=== PATIENT | female | born 1975 | race Caucasian/White ===

== ENCOUNTER 2020-02-06 09:50 | Outpatient (REF) | payer OTHER, SELFPAY ==
[2020-02-06 10:12] LABS: COVID-19 Test Negative (Negative)
== END 2020-02-06 09:51 | disposition home or self-care (01) ==
LOC: HO.LAB 09:50
PROVIDERS: Visit Provider Internal Medicine
DX: Z20.828 Contact with and (suspected) exposure to other viral communicable diseases (principal)
CPT/HCPCS: 87635; C9803

== ENCOUNTER 2020-07-31 09:52 | Outpatient (REF) | payer OTHER, SELFPAY ==
[2020-07-31 12:19] LABS: Anion Gap 11 (12-20); Blood Urea Nitrogen 13 mg/dL (9-16); Calcium 8.8 mg/dL (8.4-10.2); Carbon Dioxide 29 mmol/L (22-29); Chloride 105 mmol/L (96-108); Cholesterol 146 mg/dL; Estimated Glomerular Filt Rate > 60; Glucose Fasting 82 mg/dL (60-99); HDL Cholesterol 45 mg/dL; LDL Cholesterol Calculated 92 mg/dl; Sodium 141 mmol/L (135-145); Triglycerides 48 mg/dL
== END 2020-07-31 09:53 | disposition home or self-care (01) ==
LOC: HO.HMGCLDS 09:52
PROVIDERS: PCP Family Medicine; Visit Provider Family Medicine
DX: Z00.00 Encounter for general adult medical examination without abnormal findings (principal)
CPT/HCPCS: 36415; 80048; 80061

== ENCOUNTER 2020-08-20 16:12 | Outpatient (REF) | payer OTHER, SELFPAY ==
--- NOTE | ~2020-08-20 | MM_ITS ---
EXAMINATION: MM SCREENING DIGITAL BREAST TOMOSYNTHESIS, BILATERAL CLINICAL INFORMATION: Screening. Asymptomatic. The lifetime risk of breast cancer based on the Tyrer-Cuzick Model is 11.7%. COMPARISON: Mammography: 10/18/2017 and studies dating back to 03/05/2015 TECHNIQUE: Digital breast tomosynthesis is performed in both the craniocaudal and mediolateral oblique views along with computer-aided detection (CAD). Synthesized 2D images are generated from the tomosynthesis. FINDINGS: The breasts are extremely dense, which lowers the sensitivity of mammography (ACR BI-RADS breast composition Category d). There is a stable parenchymal pattern within the left breast without new abnormal dominant mass or suspicious grouping of microcalcifications. About the upper outer aspect of the right breast approximately 8 cm from the nipple, there is a 1.4 x 1.0 cm circumscribed density for which spot compression view and ultrasound is recommended. MM/MM tomosynthesis screening BI IMPRESSION: Density deep upper outer aspect of the right breast for further evaluation as described. ASSESSMENT: BI-RADS 0: Incomplete - Need Additional Imaging Evaluation RECOMMENDATION: 1. Additional views of the right breast. 2. Targeted ultrasound if warranted after review of the additional views. 3. Radiology department staff will contact the patient for additional imaging. This patient's information was entered into a reminder system with a target due date for their next mammogram.
== END 2020-08-20 16:13 | disposition home or self-care (01) ==
LOC: HO.MAMMO 16:12
PROVIDERS: PCP Family Medicine; Visit Provider Family Medicine
DX: Z12.31 Encounter for screening mammogram for malignant neoplasm of breast (principal)
CPT/HCPCS: 77063; 77067

== ENCOUNTER 2020-09-10 15:00 | Outpatient (REF) | payer OTHER, SELFPAY ==
--- NOTE | ~2020-09-10 | MM_ITS ---
EXAMINATION: MM DIAGNOSTIC DIGITAL BREAST TOMOSYNTHESIS, RIGHT US DIAGNOSTIC ULTRASOUND BREAST, RIGHT CLINICAL INFORMATION: Recall from screening for oval parenchymal asymmetry posterior upper outer right breast approximately 1.4 x 1.0 cm. No known family history breast cancer. TC score 12%. COMPARISON: Mammography: 08/20/2020, outside mammography 10/18/2017 ([facility]). TECHNIQUE: Digital breast tomosynthesis is performed. 2D images are generated from the tomosynthesis. The following views are obtained: Spot exaggerated CC x2, spot ML. Ultrasound right breast is targeted to the upper outer quadrant. Grayscale imaging and color Doppler are performed without and with harmonics. FINDINGS: The breasts are heterogeneously dense, which may obscure small masses (ACR BI-RADS breast composition Category c). Breast tissue composition borders on extremely dense. The additional views confirm smooth oval mass posterior upper outer quadrant with partly obscured margins measuring approximately 1.4 x 1.0 cm. There is no architectural abnormality. Finding is new from outside mammography 2018. Ultrasound demonstrates benign oval cyst corresponding to finding on mammography 10:00 position 7 cm from nipple measuring 1.3 x 0.6 x 1.0 cm. The cyst is anechoic and circumscribed with increased through-transmission of sound and no associated color flow. There is an incidental adjacent mildly complicated cyst just under 1 cm with fine avascular internal septation. No solid component or associated color flow. There is no solid mass or architectural abnormality. Results are discussed with the patient at time of visit. MM/MM tomosynthesis added views R IMPRESSION: Incidental cysts posterior upper outer right breast, the larger measuring 1.3 cm and corresponding to finding on recent mammography. ASSESSMENT: BI-RADS 2: Benign RECOMMENDATION: Routine annual mammography screening. This patient's information was entered into a reminder system with a target due date for their next mammogram.
== END 2020-09-10 15:01 | disposition home or self-care (01) ==
LOC: HO.MAMMO 15:00
PROVIDERS: Visit Provider Family Medicine
DX: N63.11 Unspecified lump in the right breast, upper outer quadrant (principal)
CPT/HCPCS: 76642; 77061; 77065

== ENCOUNTER 2021-03-17 13:45 | Outpatient (REF) | payer OTHER, SELFPAY ==
[2021-03-17 15:03] LABS: Appearance Urine CLOUDY; Color Urine DK YELLOW; Glucose Urine UA 100 MG/DL (NEG); Leukocyte Esterase Urine 2+ (NEG); Nitrite Urine POS (NEG); UACC Culture Trigger YES; Urine Blood NEG (NEG); Urine Ketones 5 MG/DL (NEG); Urine Protein 1+ MG/DL (NEG-TRACE)
[2021-03-17 15:15] LABS: UACC CULT YES; WBC Urine 50-75 /HPF (0-4)
[2021-03-17 15:16] LABS: Bacteria Urine 2+ /LPF; Mucus Urine 1+ /LPF; Squamous Epithelial Cell Urine 2+ /LPF
== END 2021-03-17 13:46 | disposition home or self-care (01) ==
LOC: HO.LAB 13:45
PROVIDERS: PCP Family Medicine; Visit Provider Family Medicine
DX: Z13.89 Encounter for screening for other disorder (principal)
CPT/HCPCS: 81001; 87086

== ENCOUNTER 2021-10-01 07:34 | Outpatient (REF) | payer OTHER, SELFPAY ==
--- NOTE | ~2021-10-01 | US_ITS ---
EXAMINATION: US PELVIS CLINICAL INFORMATION: Abdominal pain. COMPARISON: None TECHNIQUE: Ultrasound of the pelvis is performed using both transabdominal and transvaginal transducers along with Doppler. Transvaginal imaging is performed due to inadequate visualization transabdominally. FINDINGS: Uterus: The uterus is anteverted and measures 11.0 cm in length, 5.9 mL in AP and 8.3 cm wide. The double wall endometrial thickness is 9 mm. There is an IUD well located within the endometrial canal. The uterus is smooth in contour and has normal myometrial echogenicity. There are several hypoechoic lesions: 1. Lesion in the left fundus measures 3.6 x 3.1 x 3.6 cm. 2. Lesion in the fundus measures 2.2 x 1.8 x 2.1 cm. 3. Lesion in the right upper body of uterus measures 2.1 x 1.6 x 2.2 cm. 4. Lesion in the right lower body of uterus measures 3.8 x 3.1 x 3.6 cm. Adnexa: Both ovaries are visualized. There is normal color flow to the adnexa. There is no ovarian torsion. There is no pelvic ascites or fluid collection. Right ovary measures 5.7 x 4.0 x 3.6 cm, 43.0 mL. There is an anechoic cyst measuring 4.5 x 2.6 x 3.4 cm. Left ovary measures 2.5 x 2.3 x 2.3 cm and volume 6.9 mL. There is a dominant follicle seen. US/US pelvic and transvaginal IMPRESSION: Mirena IUD appears to be in correct position within the endometrial canal. Small right ovarian cyst. Small dominant follicle in the left ovary.
== END 2021-10-01 07:35 | disposition home or self-care (01) ==
LOC: HO.US 07:34
PROVIDERS: Visit Provider Internal Medicine
DX: R10.84 Generalized abdominal pain (principal)
CPT/HCPCS: 76830; 76856

== ENCOUNTER 2022-07-14 13:00 | Outpatient (REF) | payer OTHER, SELFPAY ==
[2022-07-14 14:51] LABS: Influenza A PCR NEGATIVE (Negative); Influenza B PCR NEGATIVE (Negative); Resp Syncy Virus RNA Qual PCR NEGATIVE (Negative); SARS COV2 PCR INHOUSE NEGATIVE (Negative)
== END 2022-07-14 13:01 | disposition home or self-care (01) ==
LOC: HO.LAB 13:00
PROVIDERS: Visit Provider Nurse Practitioner Family
DX: Z20.822 Contact with and (suspected) exposure to COVID-19 (principal); R09.89 Other specified symptoms and signs involving the circulatory and respiratory systems
CPT/HCPCS: 0241U

== ENCOUNTER 2022-07-23 11:05 | Outpatient (REF) | payer OTHER, SELFPAY ==
[2022-07-23 14:16] LABS: Alanine Aminotransferase 14 U/L (0-31); Albumin Level 4.1 g/dL (3.5-5.0); Alkaline Phosphatase 54 U/L (39-117); Anion Gap 11 (12-20); Aspartate Amino Transferase 15 U/L (5-31); Bilirubin Total 0.8 mg/dL (0.0-1.0); Blood Urea Nitrogen 12 mg/dL (9-16); Calcium 8.8 mg/dL (8.4-10.2); Carbon Dioxide 31 mmol/L (22-29); Chloride 104 mmol/L (96-108); Cholesterol 157 mg/dL; Estimated Glomerular Filt Rate > 60; Glucose Random 81 mg/dL (60-115); HDL Cholesterol 49 mg/dL; Potassium 3.3 mmol/L (3.3-5.1); Sodium 143 mmol/L (135-145); Total Protein 6.6 g/dL (6.5-8.0)
[2022-07-23 14:40] LABS: Syphilis Screen Nonreactive (Nonreactive)
[2022-07-23 15:42] LABS: CT PCR NOT DETECTED (Not Detect.); NG PCR NOT DETECTED (Not Detect.)
[2022-07-26 08:57] LABS: HBsAGNum1 0.36 S/CO (0.00-0.99); HIV AB/AG Nonreactive (Nonreactive); HIV Num 1 0.08 S/CO (0.00-0.99); Hepatitis B Surface Antigen Negative (Negative); ~HepC Num1 0.14 S/CO (0.00-0.79); ~Hepatitis C Antibody Nonreactive (Nonreactive)
[2022-07-28 16:43] LABS: LDL Cholesterol Calculated 100 mg/dl; Triglycerides 42 mg/dL
== END 2022-07-23 11:06 | disposition home or self-care (01) ==
LOC: HO.HMGCLDS 11:05
PROVIDERS: PCP Family Medicine; Visit Provider Family Medicine
DX: Z00.00 Encounter for general adult medical examination without abnormal findings (principal); Z11.4 Encounter for screening for human immunodeficiency virus [HIV]; Z20.2 Contact with and (suspected) exposure to infections with a predominantly sexual mode of transmission; Z86.73 Personal history of transient ischemic attack (TIA), and cerebral infarction without residual deficits
CPT/HCPCS: 0353U; 80053; 80061; 86780; 86803; 87340; 87389

== ENCOUNTER 2022-09-03 08:12 | Outpatient (REF) | payer OTHER, SELFPAY ==
--- NOTE | ~2022-09-03 | MM_ITS ---
EXAMINATION: MM SCREENING DIGITAL BREAST TOMOSYNTHESIS, BILATERAL CLINICAL INFORMATION: Screening. Asymptomatic. The lifetime risk of breast cancer based on the Tyrer-Cuzick Model is 12%. COMPARISON: Mammography: 09/10/2020, 08/20/2020, right breast ultrasound 09/10/2020; outside mammography 10/18/2017, 03/11/2016, 03/05/2015 ([facility]). TECHNIQUE: Digital breast tomosynthesis is performed in both the craniocaudal and mediolateral oblique views along with computer-aided detection (CAD). Synthesized 2D images are generated from the tomosynthesis. FINDINGS: The breasts are heterogeneously dense, which may obscure small masses (ACR BI-RADS breast composition Category c). There is fibronodular parenchymal pattern similar to prior studies. Right breast cysts decreased. Left breast shows no developing density or architectural abnormality. No abnormal calcifications either breast. The axilla and skin contours are unremarkable. The right CC view has 0.5 cm nodular asymmetric density 3 cm from nipple without definite MLO correlate, likely incompletely compressed glandular tissue or summation artifact. Patient will be recalled for additional imaging. MM/MM tomosynthesis screening BI IMPRESSION: Right: -Nodular asymmetric density CC view 3 cm from nipple likely incompletely compressed glandular tissue or summation artifact. Left: -No significant changes from prior exam. ASSESSMENT: BI-RADS 0: Incomplete - Need Additional Imaging Evaluation RECOMMENDATION: 1. Additional views right breast (spot CC, rolled CC x2). 2. Targeted ultrasound if warranted after review of the additional views. 3. Radiology department staff will contact the patient for additional imaging. This patient's information was entered into a reminder system with a target due date for their next mammogram.
== END 2022-09-03 08:13 | disposition home or self-care (01) ==
LOC: HO.MAMMO 08:12
PROVIDERS: PCP Family Medicine; Visit Provider Family Medicine
DX: Z12.31 Encounter for screening mammogram for malignant neoplasm of breast (principal)
CPT/HCPCS: 77063; 77067

== ENCOUNTER 2022-09-17 08:05 | Outpatient (REF) | payer OTHER, SELFPAY ==
--- NOTE | ~2022-09-17 | MM_ITS ---
EXAMINATION: MM DIAGNOSTIC DIGITAL BREAST TOMOSYNTHESIS, RIGHT US TARGETED BREAST ULTRASOUND, RIGHT CLINICAL INFORMATION: Left breast density approximately 3 cm from the nipple without correlate on mediolateral oblique projection and either lying at the 12 o'clock position or 6 o'clock position. COMPARISON: Mammography: 09/03/2022 and studies dating back to 03/05/2015. TECHNIQUE: Digital breast tomosynthesis is performed. 2-D images are generated from the tomosynthesis. The following views are obtained: Spot compression right breast craniocaudal view as well as right breast rolled craniocaudal medial and lateral views. Targeted right breast ultrasound. FINDINGS: The breasts are extremely dense, which lowers the sensitivity of mammography (ACR BI-RADS breast composition Category d). Additional views demonstrate question persistence of an approximately 7 mm density but which may represent superimposed tissue. Rolled lateral view shows a question of either dense tissue or partially circumscribed structure but which is not seen on the lateral rolled craniocaudal view. If the structure is real, it would be lying within the inferior breast approximately 6 o'clock position by the medial rolled view. Targeted right breast ultrasound demonstrates a small 3 mm simple-appearing cyst at the 12 o'clock position with no suspicious mass being identified within the anterior right breast. Recommend 6-month follow up right breast mammogram. Results are discussed with the patient at time of visit. MM/MM tomosynthesis added views R IMPRESSION: Right breast density likely responds to dense breast parenchyma, as described, with no suspicious right breast ultrasound findings. Recommend 6-month follow up right breast mammography. ASSESSMENT: BI-RADS 3: Probably Benign. RECOMMENDATION: Diagnostic mammography in 6 months. This patient's information was entered into a reminder system with a target due date for their next mammogram.
== END 2022-09-17 08:06 | disposition home or self-care (01) ==
LOC: HO.MAMMO 08:05
PROVIDERS: PCP Family Medicine; Visit Provider Family Medicine
DX: R92.8 Other abnormal and inconclusive findings on diagnostic imaging of breast (principal)
CPT/HCPCS: 76642; 77061; 77065

== ENCOUNTER 2023-03-03 07:30 | Outpatient (REF) | payer OTHER, SELFPAY ==
--- NOTE | ~2023-03-03 | US_ITS ---
EXAMINATION: US ABDOMEN COMPLETE CLINICAL INFORMATION: Abdominal pain. COMPARISON: None available. TECHNIQUE: Real-time imaging of the abdominal viscera. FINDINGS: PANCREAS: Normal. ABDOMINAL AORTA: The proximal, mid, and distal segments are normal in caliber. INFERIOR VENA CAVA: Visualized portions are normal. LIVER: The liver is normal in size. The liver contour is normal. Parenchymal echogenicity is normal. There is a 1 cm echogenic lesion in the right lobe of the liver most likely representing a benign hemangioma. There is no intrahepatic biliary duct dilatation seen. GALLBLADDER: There are 3 small echogenic densities adjacent to the gallbladder wall that do not move or shadow most likely representing small polyps. The largest measures 4 x 2 x 3 mm. The gallbladder is physiologically distended without evidence of stones, sludge, wall thickening or pericholecystic fluid. COMMON BILE DUCT: Normal in caliber measuring 0.4 cm in diameter. RIGHT KIDNEY: Small echogenic densities with twinkle artifact questionable for small stones. Largest measure 3 mm in the upper pole. No hydronephrosis or focal parenchymal lesions. The kidney measures 11.3 cm in maximum dimension. LEFT KIDNEY: Small echogenic densities with twinkle artifact questionable for small stones. Largest measure 2 mm in the lower pole. No hydronephrosis or focal parenchymal lesions. The kidney measures 11.2 cm in maximum dimension. SPLEEN: Normal. The spleen measures 9.4 cm in maximum dimension. FREE FLUID: None. US/US abdomen complete IMPRESSION: 1 cm echogenic liver lesion probably representing a benign hemangioma. Small gallbladder wall polyps. Probable small bilateral renal stones.
== END 2023-03-03 07:31 | disposition home or self-care (01) ==
LOC: HO.US 07:30
PROVIDERS: Visit Provider Internal Medicine Gastroenterology
DX: R10.84 Generalized abdominal pain (principal)
CPT/HCPCS: 76700

== ENCOUNTER → 2023-04-22 11:00 | Outpatient (BNV) | payer OTHER, SELFPAY | PROVIDERS: PCP Family Medicine; Visit Provider Radiology Diagnostic Radiology | DX: R92.8 Other abnormal and inconclusive findings on diagnostic imaging of breast (principal) | CPT/HCPCS: 77061; 77065 ==

== ENCOUNTER 2023-04-22 11:02 | Outpatient (REF) | payer OTHER, SELFPAY ==
--- NOTE | ~2023-04-22 | MM_ITS ---
EXAMINATION: MM DIAGNOSTIC DIGITAL BREAST TOMOSYNTHESIS, RIGHT CLINICAL INFORMATION: 6 month follow-up for 7 mm anterior right breast density, likely prominent glandular tissue. COMPARISON: Mammography: 09/17/2022, 09/03/2022 (BI-RADS 0), and dating back to 2014. TECHNIQUE: Digital right breast tomosynthesis is performed in both the craniocaudal and mediolateral oblique views along with computer-aided detection (CAD). Synthesized 2D images are generated from the tomosynthesis. A full-field right 3-D ML view was also included. FINDINGS: The breasts are heterogeneously dense, which may obscure small masses (ACR BI-RADS breast composition Category c). The 7 mm density seen on the CC projection 2 cm posterior to the nipple along the nipple line is unchanged, with no definite correlate identified on the MLO or ML views. Previously, there was no ultrasound correlate 09/17/2022. Given stability this is consistent with a benign entity such as a prominent island of fibroglandular tissue. The breast parenchyma remains nodular and heterogeneously dense, without change. No suspicious masses, suspicious grouped microcalcifications, or areas of architectural distortion are evident. No abnormal skin or axillary findings. MM/MM tomosynthesis diagnostic RT IMPRESSION: There are no significant changes from prior study. No suspicious findings identified in the right breast. Recommend the patient return to routine annual bilateral screening in August 2023. ASSESSMENT: BI-RADS BI-RADS 2 - Benign Findings RECOMMENDATION: 1 year F/U Results were provided to the patient at time of visit by the technologist. This patient's information was entered into a reminder system with a target due date for their next mammogram.
== END 2023-04-22 11:03 | disposition home or self-care (01) ==
LOC: HO.MAMMO 11:02
PROVIDERS: PCP Family Medicine; Visit Provider Family Medicine
DX: R92.8 Other abnormal and inconclusive findings on diagnostic imaging of breast (principal)
CPT/HCPCS: 77061; 77065

== ENCOUNTER 2023-05-10 08:12 | Outpatient (REF) | payer OTHER, SELFPAY ==
[2023-05-14 01:09] LABS: Fecal Fat Qualitative Normal (Normal)
[2023-05-20 04:09] LABS: Pancreatic Elastase-1 383 mcg/g
== END 2023-05-10 08:13 | disposition home or self-care (01) ==
LOC: HO.LNP 08:12
PROVIDERS: Visit Provider Internal Medicine Gastroenterology
DX: R10.84 Generalized abdominal pain (principal)
CPT/HCPCS: 82656; 82705

== ENCOUNTER 2023-07-26 07:56 | Outpatient (REF) | payer OTHER, SELFPAY ==
--- NOTE | ~2023-07-26 | FL_ITS ---
EXAMINATION: XR FLUOROSCOPY UPPER GI WITH AIR AND SMALL BOWEL SERIES CLINICAL INFORMATION: Abdominal pain COMPARISON: None TECHNIQUE: Fluoroscopic air contrast upper GI examination was performed utilizing standard techniques with thin and thick barium and effervescent granules. Numerous spot images were obtained. FINDINGS: Dual and single contrast images of the esophagus demonstrate normal caliber, contour, and mucosal pattern. No evidence of stricture, mass, or ulcerations identified. Esophageal peristalsis was normal. No evidence of hiatus hernia identified. No significant gastroesophageal reflux was seen during the course of the examination and on reflux views. Dual contrast and single contrast images of the stomach demonstrated normal contour and mucosal pattern without evidence of mass, ulceration, or other abnormality. Contrast freely passed into the gastric antrum and duodenal bulb without delay. Single and air-contrast images of the duodenal bulb demonstrate no abnormality. The duodenal sweep has a normal appearance, course, and mucosal fold appearance. The imaged small bowel has a normal fold pattern and caliber. No strictures or masses are present. Contrast is seen in the right colon at 60 minutes. FLUOROSCOPY TIME: 3 minutes 42 seconds Number of Spot Images: 11 Number of Cine: 12 DOSE AREA PRODUCT: 1934 uGy-m2 (microgray-meter squared) FL/FL upper GI w air w SBFT IMPRESSION: Unremarkable upper GI and small bowel series This procedure was performed by Breezy Ng PA-C, and supervised by Dr. Hong
== END 2023-07-26 07:57 | disposition home or self-care (01) ==
LOC: HO.XRAY 07:56
PROVIDERS: PCP Family Medicine; Visit Provider Internal Medicine Gastroenterology
DX: R10.84 Generalized abdominal pain (principal)
CPT/HCPCS: 36415; 74246; 74248; 84443

== ENCOUNTER → 2023-07-26 07:59 | Outpatient (BNV) | payer OTHER, SELFPAY | PROVIDERS: PCP Family Medicine; Visit Provider Physician Assistant Surgical | DX: R10.9 Unspecified abdominal pain (principal) | CPT/HCPCS: 74246 ==

== ENCOUNTER 2023-10-28 11:29 | Outpatient (REF) | payer OTHER, SELFPAY ==
--- NOTE | ~2023-10-28 | MM_ITS ---
EXAMINATION: MM SCREENING DIGITAL BREAST TOMOSYNTHESIS, BILATERAL CLINICAL INFORMATION: Screening. Asymptomatic. COMPARISON: Mammography: This study is compared with prior exams dating back to 2020. TECHNIQUE: Digital breast tomosynthesis is performed in both the craniocaudal and mediolateral oblique views along with computer-aided detection (CAD). Synthesized 2D images are generated from the tomosynthesis. FINDINGS: The breasts are heterogeneously dense, which may obscure small masses (ACR BI-RADS breast composition Category c). There are no significant masses, abnormal calcifications, or other abnormalities. MM/MM tomosynthesis screening BI IMPRESSION: No mammographic evidence of malignancy. ASSESSMENT: BI-RADS BI-RADS 1 - Negative RECOMMENDATION: Routine annual mammography screening. 1 year F/U This examination should not preclude the clinical evaluation of a suspicious palpable abnormality. This patient's information was entered into a reminder system with a target due date for their next mammogram. Electronically signed by: Jaky Abdullahi MD 11/25/2023 12:19 PM EDT
== END 2023-10-28 11:30 | disposition home or self-care (01) ==
LOC: HO.MAMMO 11:29
PROVIDERS: PCP Family Medicine; Visit Provider Family Medicine
DX: Z12.31 Encounter for screening mammogram for malignant neoplasm of breast (principal)
CPT/HCPCS: 77063; 77067

== ENCOUNTER → 2023-10-28 11:30 | Outpatient (BNV) | payer OTHER, SELFPAY | PROVIDERS: PCP Family Medicine; Visit Provider Radiology Diagnostic Radiology | DX: Z12.31 Encounter for screening mammogram for malignant neoplasm of breast (principal) | CPT/HCPCS: 77063; 77067 ==

== ENCOUNTER 2023-12-13 08:34 | Outpatient (AMB) | payer OTHER, SELFPAY ==
--- NOTE | 2023-12-13 08:37 | MHC.OFFWIV ---
Intake Vital Signs 12/13/23 08:46 Height 5 ft 4 in Weight 147 lb BMI 25.2 BP 112/70 Blood Pressure Location Rt brachial Position Sitting Pulse 70 Pulse Source Pulse Oximeter Temp 98.1 F Temp Source Oral Pulse Oximetry (%) 98 Oxygen Delivery Method Room Air Intake Visit Reasons: EP UTI? Intake Note: Patient here for because she has been dealing with urinary spasms and back pain for a couple of week on and off and came back last night Patient Tobacco Use Status: Never used Tobacco Allergies cephalexin [Keflex] Allergy (Unknown, Verified 12/13/23 08:46) Rash Sulfa (Sulfonamide Antibiotics) Allergy (Unknown, Verified 12/13/23 08:46) Anxiety Do you need a note to return to daycare/school/sports/work: No HPI HPI Comments History of Present Illness Details Patient is a 48-year-old female complaining of a couple of weeks of bilateral low back pain. She denies any fevers or blood in her urine. She states she was told she had some small kidney stones last February which was an incidental finding on an ultrasound from 03/03/2023. She does not think she ever passed those stones. [facility] Social History Patient Tobacco Use Status: Never used Tobacco Review of Systems Const All systems reviewed & are unremarkable except as noted in HPI and below Physical Exam Vital Signs: Last Vital Signs Temp 98.1 F 12/13/23 08:46 Pulse 70 12/13/23 08:46 BP 112/70 12/13/23 08:46 Pulse Ox 98 12/13/23 08:46 Oxygen Delivery Method Room Air 12/13/23 08:46 BMI result Body Mass Index 25.2 Const General: cooperative, healthy appearing, comfortable, no acute distress and well developed Orientation/consciousness: patient oriented x3 Limitations: no limitations HEENT Head: Yes normal to inspection Eyes General: appearance normal, both eyes and all related structures Neck Neck: Yes normal visual inspection and Yes full ROM Resp Effort & Inspection: normal respiratory effort and able to speak in complete sentences GI Inspection: Yes normal to inspection Palpation (GI): Soft to palpation and nontender General: Yes CVA tenderness (Bilateral) Back/Spine/Pelvis Back: CVA tenderness (Bilateral) Skin General skin exam: no rashes or lesions noted Neuro General: patient oriented x3 Extrem General: Yes normal to inspection Results AMB Urinalysis, Automated UA Leukoctes 0 Larissa/uL Last Edit by Jason Ramirez CCM on 12/13/23 08:52 UA Nitrite Negative Last Edit by Jason Ramirez [facility] on 12/13/23 08:52 UA Urobilinogen 0.2 mg/dL Last Edit by Jason Ramirez [facility] on 12/13/23 08:52 UA Protein 0 mg/dL Last Edit by Jason Ramirez [facility] on 12/13/23 08:52 UA pH 6.0 Last Edit by Jason Ramirez [facility] on 12/13/23 08:52 UA Blood 25 Ganesh/uL Last Edit by Jason Ramirez [facility] on 12/13/23 08:52 UA Specific Sandwich 1.010 Last Edit by Jason Ramirez [facility] on 12/13/23 08:52 UA Ketone Negative Last Edit by Jason Ramirez [facility] on 12/13/23 08:52 UA Bilirubin 0 mg/dL Last Edit by Jason Ramirez [facility] on 12/13/23 08:52 UA Glucose 0 mg/dL Last Edit by Jason Ramirez [facility] on 12/13/23 08:52 Assessment & Plan Assessment & Plan (1) Kidney stones: Code(s): N20.0 - Calculus of kidney Plan: Vital signs are stable, UA negative for infection, positive for blood, patient is well-appearing however positive CVA tenderness bilaterally, according to 03/03/2023 ultrasound patient had small bilateral stones in her kidneys, likely she is passing these now, question if new ones were formed so recommended she go to the emergency department for a current ultrasound and further workup. Called [facility] ED with expect Plan See above Orders: Orders AMB Urinalysis Automated Today Z13.9 - Encounter for screening, unspecified Coding Level of Care Code New Pt Level 5 (99398) Diagnoses Kidney stones N20.0
[2023-12-13 08:46] VITALS: BP 112/70; PULSE 70; TEMP 36.7; O2SAT 98; BMI 25.2
== END 2023-12-13 09:27 | disposition home or self-care (01) ==
PROVIDERS: PCP Family Medicine; Visit Provider Physician Assistant
DX: N20.0 Calculus of kidney (principal)

== ENCOUNTER → 2023-12-13 08:34 | Outpatient (BNVA) | payer OTHER, SELFPAY | PROVIDERS: PCP Family Medicine | DX: N20.0 Calculus of kidney (principal) | CPT/HCPCS: 81003 ==

== ENCOUNTER 2023-12-13 09:56 | Emergency (ER) | payer OTHER, SELFPAY ==
--- NOTE | ~2023-12-13 | CT_ITS ---
EXAMINATION: CT ABDOMEN AND PELVIS WITHOUT CONTRAST CLINICAL INFORMATION: Bilateral flank pain and hematuria COMPARISON: None available. TECHNIQUE: Multidetector volumetric imaging was performed from the superior aspect of the liver through the pubic symphysis. Sagittal and coronal reformatted images were obtained on the technologist's workstation. This CT examination was performed using dose optimization techniques as appropriate, variously including the following: *Automated exposure control *Adjustment of mA and/or kV according to patient size (this includes techniques or standardized protocols for targeted exams where dose is matched to indication/reason for exam; i.e. extremities or head) *Use of iterative reconstruction technique DLP: 368 mGy-cm FINDINGS: MED SURG NURSE: IUD. Fecal retention. LUNG BASES: Mild atelectasis. LIVER, GALLBLADDER, AND BILIARY TREE: The liver is normal in size, shape, and attenuation. No focal hepatic lesion or biliary ductal dilatation is present. The gallbladder is unremarkable with no evidence of radiopaque gallstones, gallbladder wall thickening, or obvious pericholecystic inflammatory changes. PANCREAS: Unremarkable. SPLEEN: Unremarkable. ADRENAL GLANDS: Unremarkable. KIDNEYS AND URETERS: The kidneys are normal in size, shape, and attenuation. No hydronephrosis, hydroureter, or calculi seen. No perinephric stranding. Small extrarenal pelvises, right greater than left. BLADDER: Unremarkable. GASTROINTESTINAL TRACT: Stomach is relatively decompressed. Nonobstructive bowel pattern. Appendix not identified. Moderately severe fecal retention. ABDOMINAL WALL: No significant hernia is appreciated. LYMPH NODES: Normal. VASCULAR: Unremarkable. PELVIC VISCERA: Enlarged, likely fibroid uterus with IUD. OSSEOUS STRUCTURES: L5-S1 disc disease. CT/CT abdomen pelvis wo IV con IMPRESSION: 1. No acute intra-abdominal or pelvic pathology. Specifically, no hydroureteronephrosis, renal, ureteral or bladder calculi. 2. Moderately severe fecal retention. 3. Enlarged, likely fibroid uterus with IUD. Fleischner guidelines were followed. Electronically signed by: Christine Rolon MD 12/13/2023 12:48 PM EDT
[2023-12-13 10:02] VITALS: BP 151/75; PULSE 76; RESP 18; TEMP 36.7; O2SAT 97; BMI 21.2
[2023-12-13 10:29] LABS: MANUAL DIFF FLAG NO
[2023-12-13 10:32] LABS: Basophils Absolute Auto 0.1 X10*3/uL (0.0-0.2); Eosinophils Absolute Auto 0.2 X10*3/uL (0.0-0.4); Eosinophils Percent Auto 2.9 % (0-4); Hematocrit 43.2 % (37.0-47.0); Hemoglobin 14.7 g/dl (12.0-16.0); Imm Gran Abs Auto 0.02 X10*3/uL (0.00-0.03); Imm Gran Pct Auto 0.3 % (0.0-0.4); Lymphocytes Absolute Auto 1.6 X10*3/uL (1.2-4.9); Lymphocytes Percent Auto 25.6 % (20-40); Mean Corpuscular Hemoglobin 33.2 pg (27.0-33.0); Mean Corpuscular Volume 97.5 fL (80.0-98.0); Mean Platelet Volume 8.7 fL (9.4-12.3); Monocytes Absolute Auto 0.5 X10*3/uL (0.1-1.2); Monocytes Percent Auto 8.4 % (2-11); Neutrophils Absolute Auto 3.8 x10*3/uL (2.0-8.3); Neutrophils Percent Auto 61.8 % (45-73); Platelet Count 354 X10*3/uL (160-400); Red Blood Count 4.43 X10*6/uL (4.20-5.50); Red Cell Distribution Width 12.4 % (11.0-16.0); White Blood Count 6.2 X10*3/uL (4.8-10.8)
[2023-12-13 10:32] LABS: Appearance Urine Clear; Color Urine Dark Yellow; Glucose Urine UA Negative (Negative); Leukocyte Esterase Urine Trace (Negative); Nitrite Urine Negative (Negative); UMIC TRIGGER UACC YES; Urine Blood Large (3+) (Negative); Urine Ketones Negative (Negative); Urine Protein Negative (Neg-Trace)
[2023-12-13 10:34] LABS: Bacteria Urine Trace (None Seen); Hyaline Casts Urine 0-2 /LPF (0-2); RBC Urine >20 /HPF (0-2); Squamous Epithelial Cell Urine 0-2 /HPF (0-2); WBC Urine 0-5 /HPF (0-5)
[2023-12-13 10:51] LABS: Anion Gap 10 (12-20); Blood Urea Nitrogen 11 mg/dL (9-16); Calcium 9.3 mg/dL (8.4-10.2); Carbon Dioxide 30 mmol/L (22-29); Chloride 106 mmol/L (96-108); Estimated Glomerular Filt Rate > 60; Glucose Random 100 mg/dL (60-115); Potassium 3.4 mmol/L (3.3-5.1); Sodium 143 mmol/L (135-145)
--- NOTE | 2023-12-13 11:12 | ED.ABDPAIN ---
HPI - Abdominal Pain General Chief Complaint: Back Pain/Injury Stated Complaint: Kidney stones? Sent from urgent care Time Seen by Provider: 12/13/23 11:11 Source: patient Mode of arrival: ambulatory Limitations: no limitations History of Present Illness ED Provider: Mary Ann Mckinney PA-C HPI narrative: 48 yo female with history of kidney stones, history of gastroenteritis who presents to the ER from urgent care for evaluation of lower back pain and microscopic hematuria. Patient states for the last 2-3 weeks she has had intermittent lower back pain, worse on the left than the right. She also endorses some urinary ?spasms? at the end of her urinary stream. She reports the pain is in her urethra and her bladder. She denies any dysuria, urgency, frequency or gross hematuria. No nausea, vomiting, diarrhea. She suffers from constipation and takes MiraLax and Metamucil at baseline. She denies any fever or chills. 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 MD elicited complaint: other (Lower back pain) Pertinent past history: kidney stones Onset (ago): week(s) Pain Consistency: intermittent Related Data Previous Rx's ?Medication ?Instructions ?Recorded ondansetron 4 mg disintegrating 4 mg PO Q6-8H PRN nausea and 07/14/22 tablet vomiting #30 tabs Allergies Allergy/AdvReac Type Severity Reaction Status Date / Time cephalexin [Keflex] Allergy Unknown Rash Verified 12/13/23 10:03 Sulfa (Sulfonamide Allergy Unknown Anxiety Verified 12/13/23 10:03 Antibiotics) [facility] Social History Social History Patient Tobacco Use Status: Never used Tobacco Advance Directives: No Advance Directives Information Provided: Yes Physical Exam ED Vital Signs: Vital Signs - 24 hr 12/13/23 10:02 12/13/23 12:00 12/13/23 13:14 Temperature 98.1 F 98.1 F 98.1 F Pulse Rate 76 69 69 Respiratory Rate 18 14 14 Blood Pressure 151/75 H 127/78 127/78 Pulse Oximetry 97 100 100 Oxygen Delivery Method Room Air Room Air Room Air BMI result Body Mass Index 21.2 Appearance: Alert. Oriented X3. No acute distress. Head: normocephalic, atraumatic. Eyes: Pupils equal, round and reactive to light. ENT: Pharynx normal. Neck: Normal inspection. CVS: Normal heart rate and rhythm. Pulses normal. Respiratory: No respiratory distress. Breath sounds normal. Abdomen: Soft and nontender. +BS x4 Back: Normal inspection. No midline tenderness of the thoracic or lumbar spine. There is soft tissue tenderness of the left lower lumbar area. Skin: Skin warm and dry. Normal skin color. Normal skin turgor. No rashes. Extremities: No lower extremity edema. No joint swelling. Neuro/psych: Oriented X 3. No motor deficit. No sensory deficit. CN II-XII intact. Normal speech and cognition. Medical Decision Making Medical Decision Making [facility] Narrative: 48-year-old female with history of kidney stones in the past, gastroenteritis who presents to the ER for evaluation of lower abdominal pain for last couple of weeks along with urinary ?spasms. ? no vomiting. She endorses constipation. On arrival to the ER patient is comfortable appearing, abdomen is nontender. No CVA tenderness on examination. Lab workup does show some microscopic hematuria without any evidence of infection in her urine. Not anemic. CT scan of her abdomen showed no kidney or ureteral stones, no hydronephrosis. She does have significant amount of stool burden. This could be causing her low back pain. We discussed the importance of following up with her PCP and Urology for further evaluation and treatment of her microscopic hematuria. Recommended increasing her bowel regimen. Return precautions were discussed. Stable for DC home. Differential Diagnosis Differential Diagnoses: The differential diagnosis associated with the presentation includes Kidney stones, renal colic, musculoskeletal back pain, constipation, bladder cancer Lab Data [facility] Lab Attestation statement: I reviewed the patient's lab results. No anemia, no leukocytosis, normal renal function 12/13/23 10:22 12/13/23 10:22 Labs: Lab Results 12/13/23 12/13/23 Range/Units 10:22 10:23 WBC 6.2 (4.8-10.8) X10*3/uL RBC 4.43 (4.20-5.50) X10*6/uL Hgb 14.7 (12.0-16.0) g/dl Hct 43.2 (37.0-47.0) % MCV 97.5 (80.0-98.0) fL MCH 33.2 H (27.0-33.0) pg MCHC 34.0 (31.0-35.0) g/dl RDW 12.4 (11.0-16.0) % Plt Count 354 (160-400) X10*3/uL MPV 8.7 L (9.4-12.3) fL Immature Gran % (Auto) 0.3 (0.0-0.4) % Neut % (Auto) 61.8 (45-73) % Lymph % (Auto) 25.6 (20-40) % Guthrie % (Auto) 8.4 (2-11) % Eos % (Auto) 2.9 (0-4) % Baso % (Auto) 1.0 (0-2) % Lymph # (Auto) 1.6 (1.2-4.9) X10*3/uL Guthrie # (Auto) 0.5 (0.1-1.2) X10*3/uL Eos # (Auto) 0.2 (0.0-0.4) X10*3/uL Baso # (Auto) 0.1 (0.0-0.2) X10*3/uL Abs Immat Gran (auto) 0.02 (0.00-0.03) X10*3/uL Absolute Neuts (auto) 3.8 (2.0-8.3) x10*3/uL Absolute Nucleated RBC 0.000 (0.0-0.012) X10*3/uL Nucleated RBC % (auto) 0.0 (0.0-0.2) /100WBC Sodium 143 (135-145) mmol/L Potassium 3.4 (3.3-5.1) mmol/L Chloride 106 (96-108) mmol/L Carbon Dioxide 30 H (22-29) mmol/L Anion Gap 10 L (12-20) BUN 11 (9-16) mg/dL Creatinine 0.66 (0.5-1.4) mg/dL Estim Creat Clear Calc 88.0 Estimated GFR > 60 Random Glucose 100 (60-115) mg/dL Calcium 9.3 (8.4-10.2) mg/dL Urine Color Dark Yellow Urine Appearance Clear Urine pH 7.0 (5.0-9.0) Ur Specific Hadley 1.010 (1.005-1.025) Urine Protein Negative (Neg-Trace) mg/dL Urine Glucose (UA) Negative (Negative) mg/dL Urine Ketones Negative (Negative) mg/dL Urine Blood Large (3+) H (Negative) Urine Nitrite Negative (Negative) Ur Leukocyte Esterase Trace H (Negative) Urine RBC >20 H (0-2) /HPF Urine WBC 0-5 (0-5) /HPF Ur Squamous Epith Cells 0-2 (0-2) /HPF Urine Bacteria Trace (None Seen) Hyaline Casts 0-2 (0-2) /LPF Independent Interpretation I performed an independent interpretation of an: CT Scan Interpretation: CT scan without any ureteral stones, no hydronephrosis, agrees radiology read Radiology Impression Discussion of test interpretation with radiology: I have reviewed the radiologist's reading. External Record Review External record reviewed: Outpatient record, Prior outpatient labs and Prior outpatient radiology Prescription Management I considered prescription management with: Pain Medication and Antibiotic Chronic Conditions Patient?s care impacted by: Other (Kidney stones) Medications Administered Discontinued Medications Generic Name Dose Route Start Last Admin Trade Name Floq PRN Reason Stop Dose Admin Sodium Chloride 1,000 mls @ 999 mls/hr 12/13/23 11:15 12/13/23 13:19 Ns IVCONT 12/13/23 12:15 Infused .Q1H1M SALTY Infusion Ketorolac Tromethamine 30 mg 12/13/23 11:11 12/13/23 11:26 Ketorolac Tromethamine 30 Mg/Ml Vial IVPUSH 12/13/23 11:12 30 mg ONCE ONE Administration Critical Care Time Critical Care Time Critical Care Time: No Discharge Plan Discharge Clinical Impression: Microscopic hematuria Low back pain Qualifiers: Chronicity: acute Back pain laterality: bilateral Sciatica presence: without sciatica Qualified Code(s): M54.50 - Low back pain, unspecified Patient Disposition: Home, Self-Care Instructions: Hematuria (ED), Acute Low Back Pain (ED) Additional Instructions: Your lab work today was reassuring, no anemia. Normal renal function. Your urinalysis showed microscopic hematuria or blood in the urine. Your CT scan did not show any kidney stones, you have a large amount of stool burden. Recommend increasing her MiraLax 2 times a day, continuing Colace 2 times a day and adding senna at nighttime. Drink plenty of fiber, stay hydrated drink plenty of water as well. Follow-up with primary care doctor. Recommend following up with Urology for further evaluation of your microscopic hematuria. If you develop new or worsening symptoms call 911 or come back to the ER for further evaluation. EXAMINATION: CT ABDOMEN AND PELVIS WITHOUT CONTRAST CLINICAL INFORMATION: Bilateral flank pain and hematuria COMPARISON: None available. TECHNIQUE: Multidetector volumetric imaging was performed from the superior aspect of the liver through the pubic symphysis. Sagittal and coronal reformatted images were obtained on the technologist's workstation. This CT examination was performed using dose optimization techniques as appropriate, variously including the following: *Automated exposure control *Adjustment of mA and/or kV according to patient size (this includes techniques or standardized protocols for targeted exams where dose is matched to indication/reason for exam; i.e. extremities or head) *Use of iterative reconstruction technique DLP: 368 mGy-cm FINDINGS: PREASSEMBLER AND INSPECTOR: IUD. Fecal retention. LUNG BASES: Mild atelectasis. LIVER, GALLBLADDER, AND BILIARY TREE: The liver is normal in size, shape, and attenuation. No focal hepatic lesion or biliary ductal dilatation is present. The gallbladder is unremarkable with no evidence of radiopaque gallstones, gallbladder wall thickening, or obvious pericholecystic inflammatory changes. PANCREAS: Unremarkable. SPLEEN: Unremarkable. ADRENAL GLANDS: Unremarkable. KIDNEYS AND URETERS: The kidneys are normal in size, shape, and attenuation. No hydronephrosis, hydroureter, or calculi seen. No perinephric stranding. Small extrarenal pelvises, right greater than left. BLADDER: Unremarkable. GASTROINTESTINAL TRACT: Stomach is relatively decompressed. Nonobstructive bowel pattern. Appendix not identified. Moderately severe fecal retention. ABDOMINAL WALL: No significant hernia is appreciated. LYMPH NODES: Normal. VASCULAR: Unremarkable. PELVIC VISCERA: Enlarged, likely fibroid uterus with IUD. OSSEOUS STRUCTURES: L5-S1 disc disease. CT/CT abdomen pelvis wo IV con IMPRESSION: 1. No acute intra-abdominal or pelvic pathology. Specifically, no hydroureteronephrosis, renal, ureteral or bladder calculi. 2. Moderately severe fecal retention. 3. Enlarged, likely fibroid uterus with IUD. Prescriptions: No Action ondansetron 4 mg tablet,disintegrating 4 mg PO Q6-8H PRN (Reason: nausea and vomiting) Qty: 30 0RF Referrals: [facility] [Provider Group] (Microscopic hematuria) Eduarda Shrestha MD [Primary Care Provider] - Interventions: ED Discharge Assessment Last Done: 12/13/23 13:14 Discharge Date/Time: 12/13/23 13:19 Print Language: Polish
[2023-12-13] MEDS: 0.9 % Sodium Chloride 1,000 ML 999 ML IVCONT (11:25)
[2023-12-13] MEDS: Ketorolac Tromethamine 30 MG/ML VIAL IVPUSH (11:26)
[2023-12-13 12:00] VITALS: BP 127/78; PULSE 69; RESP 14; TEMP 36.7; O2SAT 100
[2023-12-13 13:14] VITALS: BP 127/78; PULSE 69; RESP 14; TEMP 36.7; O2SAT 100
== END 2023-12-13 13:19 | disposition home or self-care (01) ==
PROVIDERS: Emergency Provider Emergency Medicine; PCP Family Medicine
DX: R31.9 Hematuria, unspecified (principal); M54.50 Low back pain, unspecified; N32.89 Other specified disorders of bladder; K59.00 Constipation, unspecified; R11.0 Nausea; R10.9 Unspecified abdominal pain; Z87.442 Personal history of urinary calculi; Z79.899 Other long term (current) drug therapy
CPT/HCPCS: 36415; 74176; 80048; 81001; 85025; 96361; 96374; 99284; J1885

== ENCOUNTER 2024-02-15 06:23 | Outpatient (REF) | payer OTHER, SELFPAY ==
[2024-02-15 07:55] LABS: Cholesterol 147 mg/dL (<200); HDL Cholesterol 44 mg/dL (>40); LDL Cholesterol Calculated 91 mg/dL (<100); Triglycerides 62 mg/dL (<150)
[2024-02-15 08:10] LABS: HBsAGNum1 0.38 S/CO (0.00-0.99); HIV AB/AG Nonreactive (Nonreactive); HIV Num 1 0.05 S/CO (0.00-0.99); Hepatitis B Surface Antigen Negative (Negative); Syphilis Screen Nonreactive (Nonreactive); ~HepC Num1 0.14 S/CO (0.00-0.79); ~Hepatitis C Antibody Nonreactive (Nonreactive)
[2024-02-15 11:16] LABS: CT PCR NOT DETECTED (Not Detect.); NG PCR NOT DETECTED (Not Detect.)
== END 2024-02-15 06:24 | disposition home or self-care (01) ==
LOC: HO.LAB 06:23
PROVIDERS: PCP Family Medicine; Visit Provider Family Medicine
DX: Z00.00 Encounter for general adult medical examination without abnormal findings (principal); E55.9 Vitamin D deficiency, unspecified
CPT/HCPCS: 80061; 82306; 86780; 86803; 87340; 87389; 87491; 87591

== ENCOUNTER 2024-07-15 02:54 | Observation (INO) | payer OTHER, SELFPAY ==
[2024-07-15] VITALS (11 sets, daily range): BP systolic 117–162; BP diastolic 62–86; PULSE 92–119; RESP 15–20; TEMP 36.2–37.6; O2SAT 96–100; BMI 18.1
--- NOTE | 2024-07-15 03:10 | ED.ALLEREA ---
HPI - Allergic Reaction General Chief complaint: Allergic Reaction Stated complaint: Allergic Reaction Time Seen by Provider: 07/15/24 03:05 Source: patient and family Mode of arrival: ambulatory Limitations: no limitations History of Present Illness ED Provider: Dr. Sue Arana HPI narrative: Patient comes to the emergency room complaining of facial swelling. Patient states that yesterday, approximately 10 hours ago patient had Botox injections in her forehead. Patient states that throughout the night she noticed that her forehead was a bit swollen but did not think much of it. Went to sleep. 1/2 hour prior to arrival to the ED, patient woke up, went to the bathroom, had difficulty opening her eyes. Patient states that she can barely open her eyes now due to the facial swelling and periorbital edema. At this time, patient states that she has no respiratory difficulty, no foreign body sensation in the throat. However, patient states that the swelling in her upper face is rapidly becoming worse Related Data Previous Rx's ?Medication ?Instructions ?Recorded ondansetron 4 mg disintegrating 4 mg PO Q6-8H PRN nausea and 07/14/22 tablet vomiting #30 tabs Allergies Allergy/AdvReac Type Severity Reaction Status Date / Time onabotulinumtoxinA Allergy Severe Angioedema Verified 07/15/24 05:28 [From Botox] cephalexin [Keflex] Allergy Unknown Rash Verified 07/15/24 03:10 Sulfa (Sulfonamide Allergy Unknown Anxiety Verified 07/15/24 03:10 Antibiotics) Review of Systems Review of Systems: Constitutional : No Weight loss, No Fever, No Chills, No Night Sweats, No Fatigue, No Malaise ENT/Mouth : No Hearing loss, No Ear Pain, No Nasal Congestion, No Sinus Pain, No Hoarseness, No sore throat, No Rhinorrhea, No Swallowing Difficulty Eyes: No Eye Pain, No Swelling, No Redness, No Foreign Body, No Discharge, No Vision Changes Cardiovascular : No Chest Pain, No SOB, No Dyspnea on Exertion, No Orthopnea, No Edema, No Palpitations Respiratory : No Cough, No Sputum, No Wheezing, No Smoke Exposure, No Dyspnea Gastrointestinal : No Nausea, No Vomiting, No Diarrhea, No Constipation, No abdominal Pain, No Hematochezia, No Melena Genitourinary : no irregular bleeding, No Dysuria, No Urinary Frequency, No Hematuria, No Urinary Incontinence, No Urgency, No Flank Pain, No Urinary Flow Changes, No Hesitancy Musculoskeletal : No joint pain, No Myalgias, No Joint Swelling Skin : Complaining of upper facial swelling around the area of Botox injections, including forehead and periorbital region Neuro : No Weakness, No Numbness, No Paresthesias, No Loss of Consciousness, No Dizziness, No Headache Psych : No Anxiety/Panic, No Depression, No SI/HI/AH/VH, No Social Issues, Heme/Lymph: No Bruising, No Bleeding,No Lymphadenopathy Endocrine : No Polyuria, No Polydipsia, No Temperature Intolerance [facility] Social History Social History Patient Tobacco Use Status: Never used Tobacco Advance Directives: No Advance Directives Information Provided: Yes Do you have a plan to hurt others: No Plan Physical Exam ED Vital Signs: Vital Signs - 24 hr 07/15/24 03:06 07/15/24 03:18 07/15/24 03:30 Temperature 98.5 F Pulse Rate 98 119 H 110 H Respiratory Rate 16 16 Blood Pressure 162/79 H 145/86 H 144/80 H Pulse Oximetry 100 100 Oxygen Delivery Method Room Air Room Air 07/15/24 04:00 Temperature Pulse Rate 95 Respiratory Rate 15 Blood Pressure 133/65 Pulse Oximetry 99 Oxygen Delivery Method Room Air BMI result Body Mass Index 18.1 Const Other: Appearance: Alert. Oriented X3. No acute distress. Eyes: It is difficult to visualize his patient's pupils. Patient has significant periorbital edema patient can not open her eyes. ENT: Pharynx normal. No angioedema in the oropharynx Neck: Normal inspection. Neck supple. No lymph nodes noted. No crepitus CVS: Normal heart rate and rhythm. Pulses normal. Normal S1 and S2 Respiratory: No respiratory distress. Breath sounds normal. No Wheezing. No rales Abdomen: Soft and nontender. No rigidity. No distention. Skin: Skin warm and dry. Normal skin color. Normal skin turgor. Extremities: No lower extremity edema. No Lacerations. No Rash Neuro: Oriented X 3. No motor deficit. No sensory deficit. Moving all extremities. No slurred speech. CN 2 through 12 grossly intact Psych: calm, cooperative, normal affect Course Course Course Narrative: Patient receiving IV fluids, diphenhydramine, famotidine, Solu-Medrol and also EpiPen IM Medications Administered Discontinued Medications Generic Name Dose Route Start Last Admin Trade Name Alysia PRN Reason Stop Dose Admin Diphenhydramine HCl 50 mg 07/15/24 03:05 07/15/24 03:12 Diphenhydramine Hcl 50 Mg/Ml Vial IVPUSH 07/15/24 03:06 50 mg ONCE ONE Administration Epinephrine 0.3 mg 07/15/24 03:15 07/15/24 04:27 Epinephrine 1 Mg/Ml Vial IM 07/15/24 03:56 Not Given Q20M SALTY Famotidine 20 mg 07/15/24 03:05 07/15/24 03:11 Famotidine/Pf 20 Mg/2 Ml Vial IVPUSH 07/15/24 03:06 20 mg ONCE ONE Administration Sodium Chloride 1,000 mls @ 999 mls/hr 07/15/24 03:15 07/15/24 04:27 Ns IVCONT 07/15/24 04:15 Infused .Q1H1M ONE Infusion Methylprednisolone Sodium Succinate 125 mg 07/15/24 03:05 07/15/24 03:11 Methylprednisolone Sod Succ 125 Mg/2 Ml Vial IVPUSH 07/15/24 03:06 125 mg ONCE ONE Administration Medical Decision Making Medical Decision Making MDM Narrative: Patient's labs do not show any acute abnormality, potassium 3.2, repleted p.o. Overall, patient's vitals stable, no airway compromise. However, patient is not improving much. Patient can barely open her right eye and the left eye is completely closed due to periorbital edema. Patient is stable. I discussed the patient with Dr. Gamino, patient being admitted Differential Diagnosis Differential Diagnoses: The differential diagnosis associated with the presentation includes (Allergic reaction, angioedema) Admission/Observation Consideration of admission/observation: Escalation of care including admission/observation considered Consult Healthcare Provider Management of the patient was discussed with: Hospitalist Lab Data MDM Lab Attestation statement: I reviewed the patient's lab results. 07/15/24 04:43 07/15/24 04:43 Labs: Lab Results 07/15/24 Range/Units 04:43 WBC 11.5 H (4.8-10.8) X10*3/uL RBC 4.08 L (4.20-5.50) X10*6/uL Hgb 13.2 (12.0-16.0) g/dl Hct 39.0 (37.0-47.0) % MCV 95.6 (80.0-98.0) fL MCH 32.4 (27.0-33.0) pg MCHC 33.8 (31.0-35.0) g/dl RDW 13.2 (11.0-16.0) % Plt Count 302 (160-400) X10*3/uL MPV 8.7 L (9.4-12.3) fL Immature Gran % (Auto) 0.4 (0.0-0.4) % Neut % (Auto) 88.6 H (45-73) % Lymph % (Auto) 6.6 L (20-40) % [place] % (Auto) 2.9 (2-11) % Eos % (Auto) 1.0 (0-4) % Baso % (Auto) 0.5 (0-2) % Lymph # (Auto) 0.8 L (1.2-4.9) X10*3/uL [place] # (Auto) 0.3 (0.1-1.2) X10*3/uL Eos # (Auto) 0.1 (0.0-0.4) X10*3/uL Baso # (Auto) 0.1 (0.0-0.2) X10*3/uL Abs Immat Gran (auto) 0.05 H (0.00-0.03) X10*3/uL Absolute Neuts (auto) 10.2 H (2.0-8.3) x10*3/uL Absolute Nucleated RBC 0.000 (0.0-0.012) X10*3/uL Nucleated RBC % (auto) 0.0 (0.0-0.2) /100WBC Sodium 145 (135-145) mmol/L Potassium 3.2 L (3.3-5.1) mmol/L Chloride 111 H (96-108) mmol/L Carbon Dioxide 23 (22-29) mmol/L Anion Gap 14 (12-20) BUN 15 (9-16) mg/dL Creatinine 0.63 (0.5-1.4) mg/dL Estim Creat Clear Calc 79.6 Estimated GFR > 60 Random Glucose 145 H (60-115) mg/dL Calcium 8.3 L D (8.4-10.2) mg/dL Total Bilirubin 0.5 (0.0-1.0) mg/dL Direct Bilirubin 0.2 (0.0-0.5) mg/dL AST 23 (5-31) U/L ALT 15 (0-31) U/L Alkaline Phosphatase 66 (39-117) U/L Total Protein 6.7 (6.5-8.0) g/dL Albumin 4.0 (3.5-5.0) g/dL Critical Care Time Critical Care Time Critical Care Time: Yes Total Critical Care Time: 60 Attestation: Please follow-up with your primary care physician tomorrow. If you have any worsening or new symptoms, please return to the emergency room or call 911 Discharge Plan Discharge Clinical Impression: Angioedema Patient Disposition: Admitted As Inpatient Prescriptions: No Action ondansetron 4 mg tablet,disintegrating 4 mg PO Q6-8H PRN (Reason: nausea and vomiting) Qty: 30 0RF Print Language: Nepali
[2024-07-15] MEDS: methylPREDNISolone Sod Succ 125 MG/2 ML VIAL IVPUSH ×2 (03:11→13:19)
[2024-07-15] MEDS: Famotidine/PF 20 MG/2 ML VIAL IVPUSH ×3 (03:11→19:36)
[2024-07-15] MEDS: diphenhydrAMINE HCL 50 MG/ML VIAL IVPUSH (03:12)
[2024-07-15] MEDS: EPINEPHrine 1 MG/ML VIAL 0.3 MG IM (03:18)
[2024-07-15] MEDS: 0.9 % Sodium Chloride 1,000 ML 999 ML IVCONT (03:22)
--- NOTE | 2024-07-15 03:25 | PC.NURSE ---
pt brought back to ed 5 from triage for allergic reaction to botox. pt placed on cardiac and spo2 monitor iv 20 g placed in L AC. pt medicated according to niesha peres to bedside
--- OUTSIDE RECORDS SUMMARY | 2024-07-15 04:27 | XMS_ITS ---
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 Phone Eduarda Shrestha Primary Care Provider Unavail able Jackie Salcedo Unavailable [phone] Mario Martínez Unavailable [phone] Encounters Encounter Location Date Provider Diagnosis [address] [address] 03/30/2024 Mario Martínez Plan Of Treatment Next Appt Details Provider Name:Jackie Pepper Matias , 08/03/2024 11:45:00 AM, [address] [place], [address], Progress Notes * JOHNBILLMelissa LOUIS LDOB:1975 (49 yo F)Acc No.[id number]:03/30/2024 Progress Note Patient:?Melissa ODELL Provider:?Mario Martínez DPM :1975???Age:48 Y???Sex:Female D ate:03/30/2024 Address:[address] [place] [address] [id number] Pcp:Eduarda Shrestha Subjective: * Chief Complaints: * ??? * Medical History:? Objective: * Vitals:? Assessment: Plan: * Treatment: * Images: * The named appointment provid er may or may not be the originator of this progress note, and it is not deemed complete until electronically signed by the appointment provider. Sign off status: Pending * Provider:Swati Martínez DPM Date:?2024 Generated for Prosper day/Deep/Terrance on:?07/15/2024 04:26 AM EDT
--- OUTSIDE RECORDS SUMMARY | 2024-07-15 04:27 | XMS_ITS ---
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 Primary Care Provider Un available Ayo Rajput Jr Unavailable [phone] REASON FOR VISIT cancel appt Encounters Encounter Location Date Provider Diagnosis [facility] [address] [place] [phone] 01/11/2024 Ayo Rajput Jr Plan Of Treatment No Information Progress Notes * NILESH BEALDOB: [birth year] (48 yo F)Acc No.[id number]:01/11/2024 Patient:?NILESH BEAL :1975???Age:48 Y???Sex:Female Address:[address] [place], [address] * true * Date:? Generated for Kadeni barb/Deep/eTransmitting on:?07/15/2024 04:26 AM EDT
--- OUTSIDE RECORDS SUMMARY | 2024-07-15 04:27 | XMS_ITS ---
Author Organization [facility] Address [address] [place] [address] Care Team Providers Care Unit Leader Name Role Phone Eduarda Shrestha M.D. Primary Care Provider Un available Ayo Rajput Jr Unavailable REASON FOR VISIT labs/x-rays/ new message regarding new medication. fyi update Medications Medication SIG (Take, Route, Frequency, Duration) Notes Start Date End Date Status Hyoscyamine Sulfate 0.125 MG 1 tablet as needed Orally Four times a day for 30 days 07/28/2023 Active Encounters Encounter Location Date Provider [facility] [address] [place] [address] 07/28/2023 Ayo Rajput Jr Generalized abdominal pain R10.84 Assessments Encounter Date Diagnosis (ICD Code) Assessment Notes Treatment Notes Treatment Clinical Notes Section Notes 07/28/2023 Generalized abdominal pain (ICD-10 - R10.84) Plan Of Treatment Medication Medication Name Sig Start Date Stop Date Notes Hyoscyamine Sulfate 0.125 MG 1 tablet as needed Orally Four times a day for 30 days 07/28/2023 Progress Notes * NILESH BEALDOB: [birth year] (48 yo F)Acc No.[id number]:07/28/2023 Patient:?NILESH BEAL :1975???Age:48 Y???Sex:Female Address: [place], [address] * Refills? Start Hyoscyamine Sulfate Tablet, 0.125 MG, Orally, 120 Tablet, 1 tablet as needed, Four times a day, 30 days, Refills=6 Subjective: * Chief Complaints: * ???Labs/x-rays/ new message regarding new medication. fyi update * Medical History:? * Surgical History:? * Hospitalization/Major Diagno stic Procedure:? * Medications:? Objective: Assessment: * Assessment: 1.?Generalized abdominal sherry n - R10.84 (Primary)? Plan: * Treatment: * Procedure Codes:? * true * Date:? Generated for Prosper day/Deep/eTransmitting on:?07/15/2024 04:27 AM EDT
--- OUTSIDE RECORDS SUMMARY | 2024-07-15 04:27 | XMS_ITS ---
Author Organization [facility] Address [address] [place] [address] Care Team Providers Care Varsity Baseball Coach Name Role Phone Eduarda Shrestha Primary Care Provider Unavail able Black, Jackie Unavailable [phone] Allergies Allergen (clinical drug ingredient) Drug/Non Drug Allergy documented on EMR Reaction Allergy Type Onset Date Status Latex Latex rash Allergy Active Substance with sulfonamide structure and antibacterial mechanism of action (substance) Sulfa Antibiotics rash Drug Allergy Active REASON FOR VISIT Toe Pain Medications Medication SIG (Take, Route, Frequency, Duration) Notes Start Date End Date Status Multivitamin - 1 tablet Orally Once a day for 30 day(s) Active [place] 3 Active Amitriptyline HCl 10 MG 1 tablet at bedt alia Orally Once a day for 30 day(s) Not-Taking Calcium 1 tab Oral for 14 days Active Social History Tobacco Use: Social History Observation Description Date Details (start date - stop date) Never Smoker NA - NA Tobacco Use/Smoking Question Answer Notes Are you a: nonsmoker Additional Findings: Tobacco Non-User Current no n-smoker Alcohol Screen Question Answer Notes Did you have a drink contain ing alcohol in the past year? Yes How often did you have a dri nk containing alcohol in the past year? Monthly or less (1 point) Points 1 Interpretation Negative Tobacco use other than smoking: Question Answer Notes Are you an other tobacco user? No Vital Signs Height 5ft 4 in in 06/01/2024 Weight 105 lbs 06/01/2024 BMI 18.02 kg/m2 06/01/2024 Blood pressure systolic 137 mm Hg 06/02/19 25 Blood pressure diastolic 87 mm Hg 025 Heart Rate 82 /min 06/01/2024 Encounters Encounter Location Date Provider Diagnosis [facility] [address] [place] [address] 06/01/2024 Jackie Salcedo Other hammer toe(s) (acquired), right foot M20.41 ; Hallux valgus (acquired), right foot M20.11 ; Hallux valgus (acquired), left foot M20.12 ; Pain in right foot M79.671 and Other hammer toe(s) (acquired), left foot M20.42 Assessments Encounter Date Diagnosis (ICD Code) Assessment Notes Treatment Notes Treatment Clinical Notes Section Notes 06/01/2024 Other hammer toe(s) (acquired), right foot (ICD-10 - M20.41) 06/01/2024 Hallux valgus (acquired), right foot (ICD-10 - M20.11) 06/01/2024 Hallux valgus (acquired), left foot (ICD-10 - M20.12) 06/01/2024 Pain in right foot (ICD-10 - M79.671) 06/01/2024 Other hammer toe(s) (acquired), left foot (ICD-10 - M20.42) Plan Of Treatment Next Appt Details Follow Up: prn, Reason: Provider Name:Jackie Evgeny Salcedo , 08/03/2024 11:45:00 AM, [address] [facility], [place], [address], Progress Notes * Melissa ODELL LDOB:1975 (49 yo F)Acc No.[id number]:06/01/2024 Progress Note Patient:?Melissa ODELL Provider:?Jackie Salcedo DPM :1975???Age:49 Y???Sex:Female D ate:06/01/2024 Address:[address] [place] [address], [id number] Pcp:Eduarda Shrestha Subjective: * Chief Complaints: * ???Toe Pain * HPI: ???Toe pain:?Nature:?tenderness, aching, stiffness, swelling.?Location:?Great toe, 2nd toe, 5th toe, Right foot, 2nd toe, Left foot.?Duration:?, several years.?Onset/Cause:?genetic--dad.?Course:?unchanged.?Aggravated by:?shoes, any pressure.?Treatments:?change in shoes, bracing/splinting/padding has not helped.? * ROS:?General/Constitutional:?Nausea?denies.?Vomiting?denies.?Hunger Thirst?denies.?Loss appetite?denies.?Chills?denies.?Fatigue?denies.?Fever?denies.?Night Sweats?denies.?Unexplained weight loss?denies.?Unexplained weight gain?denies.?HEENTM:?Dentures?denies.?Dizziness?denies.?Glasses/contacts?admits.?Retinopathy?de nies.?Blurred/double vision?denies.?TMJ?denies.?Discharge/drainage?denies.?Implants?denies.?Sore throat?denies.?Dental implants?denies.?Hard of hearing ?denies.?Difficulty chewing/swallowing/speaking?denies.?Nose bleeds?denies.?Sore mouth?denies.?Respiratory:?On Oxygen?denies.?Pneumonia/pleurisy?denies.?Bronchitis?denies.?Emphysema?denies.?C oughing?denies.?Cough blood?denies.?Shortness of breath?denies.?Wheezing?denies.?Cardiovascular:?Pacemaker?denies.?MVP?denies.?WPW?denies.?CHF?denies.?Heart attack?denies.?Septal defect?denies.?Rapid beat?denies.?Chest pain ?denies.?Atrial Fib.?denies.?Murmur/Palpitations?denies.?Gastrointestinal:?Hemorrhoids?denies.?Stomach/Abdominal pain?denies.?Dark blood stool?denies.?Irritable bowel ?denies.?Constipation?denies.?Diarrhea?denies.?Hematology:?Swelling?denies.?Clots?denies.?Varicose Veins?denies.?Bruising?denies.?Bleeding problem?denies.?Genitourinary:?Blood urine?denies.?Frequent/Painfu/urination/bladder control?denies.?Kidney stones?denies.?Infection (UTI)?denies.?Nephropathy?denies.?sex trans dis (STD)?denies.?Prostate?denies.?Musculoskeletal:?Hammertoes?admits.?Bunions?admits.?Back Pain?denies.?Muscle Cramps/ Resting?denies.?Muscle cramps / walking?denies.?Generalized aches and pains?denies.?Weakness?denies.?Integ.:?Jensen?denies.?Scars?denies.?Corns/calluses?admits.?Ingrown nails?admits.?Painful nails?admits.?Open Sores?denies.?Rashes?denies.?Neurologic:?Difficulty sleeping?denies.?Brain disorder?denies.?Numbness?denies.?Balance trouble?denies.?Confusion?denies.?Fainting/blackouts?denies.?Tingling?denies.?Tr emors?denies.? * Medical History:? * Surgical History:?tonsillect fredy 1984D&C 2008 * Hospitalization/Major Diagno stic Procedure:?No Hospitalization History. * Family History:?Mother: dece ased, foot problems.?Father: alive.?Spouse: alive.?Paternal Grand Father: diagnosed with Diabetic - NIDDM.? * Social History:?Tobacco Use:?Tobacco Use/Smoking?Are you a:?nonsmoker ?Additional Findings: Tobacco Non-User?Current non-smoker ?Tobacco use other than smoking?Are you an other tobacco user??No ???Drugs/Alcohol:?Drugs?Have you used drugs other than those for medical reasons in the past 12 months??No ?Alcohol Screen?Did you have a drink containing alcohol in the past year??Yes ?How often did you have a drink containing alcohol in the past year??Monthly or less (1 point) ?Points?1 ?Interpretation?Negative ???Miscellaneous:?Caffeine: yes, frequency:, 1-2 cups per day. ?Exercise: yes, hiking. ?Marital status: . 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 * Medications:?TakingCalcium 1 tab Oral Multivitamin - Tablet 1 tablet Orally Once a day [place] 3 Taking Calcium 1 tab Oral Taking Multivitamin - Tablet 1 tablet Orally Once a day Taking [place] 3 Not-Taking/PRNAmitriptyline HCl 10 MG Tablet 1 tablet at bedtime Orally Once a day Medication List reviewed and reconciled with the patientNot-Taking/PRN Amitriptyline HCl 10 MG Tablet 1 tablet at bedtime Orally Once a day Medication List reviewed and reconciled with the patient * Allergies:?Sulfa Antibiotics : rashLatex: rashyes[Allergies Verified] Objective: * Vitals:?Ht:5ft 4 in, Wt:105, BMI:18.02, Shoe size:8, BP:137/87mm Hg, HR:82/min, Ht-cm: 162.56 cm, Wt-k.63 kg. * Examination: ???General Examination: ?GENERAL APPEARANCE:?pleasant, alert, well nourished, well developed, well hydrated, with good attention to hygene/body habitus, and in no acute distress.?ORIENTED:?person,place, and time.?Neurological: ?SENSORY:?Neurological exam reveals intact sensorium, pain sensation normal, vibration sensation intact, pinprick sensation is normal in the lower extremities, Pt denies, anesthesia, burning, paresthesia, tingling, B/L.?BABINSKI REFLEX:?absent.?Vascular: ?DP PULSES (B):?2/4, B/L.?PT PULSES (B):?2/4, B/L.?CAPILLARY FILL TIME:?3 secs. per digit, B/L.?TROPHIC CONDITION-TEXTURE/ELASTICITY/TURGOR/HAIR GROWTH (B):?normal, B/L.?TEMPERTURE GRADIENT (C):?warm to cool, proximal to distal, B/L.?PIGMENTATION:?normal, B/L.?EDEMA (C):?no edema, B/L.?TELANGECTASIA:?absent.?VARICOSITIES:?absent.?Dermatologic: ?SKIN FINDINGS:? Skin exam reveals Keratotic lesion(s) located at, Plantar, T9, T6,SUB MTH (s),1,B/L.?Orthopedic: ?MUSCLE STRENGTH:?5/5 all groups in a symmetrical fashion , B/L.?GAIT ABNORMALITY:?pronated, abducted, B/L.?FOOT MORPHOLOGY:? Pes Planus structure, B/L--right more severe.?BUNION:? Medially prominent 1st MPJ, Dorsally prominent 1st MPJ , (+) Pain on palpation, B/L.?DIGITAL DEFORMITIES:? Digital contracture, PIPJ, 2-5 B/L, incompl- reducable with WB, or to push-up test, no over, nor underlapping.? Assessment: * Assessment: 1.?Hallux valgus (acquired), right foot - M20.11???2.?Other hammer toe(s) (acquired), right foot - M20.41 (Primary)???Specify :Resistant to previous conservative treatment Decision for surgery (4)???3.?Hallux valgus (acquired), left foot - M20.12???4.?Pain in right foot - M79.671???5.?Other hammer toe(s) (acquired), left foot - M20.42??? Plan: * Treatment: * Procedure Codes:? * Preventive Medicine:? ??Counseling:?Discussion:?-14: Office or other outpatient visit for the evaluation and management of an established patient, which required a medically appropriate history and/or examination and MODERATE level of DECISION MAKING for: 1 OR MORE CHRONIC PROBLEM(S) THATS WORSENING, 2 STABLE CHRONIC PROBLEMS, A NEWLY DIAGNOSED PROBLEM WITH UNCERTAIN PROGNOSIS, AN ACUTE COMPLICATED INJURY WITH MULTIPLE TREATMENT OPTIONS, OR AN ACUTE PROBLEM WITH ACCOMPANYING SYSTEMIC SYMPTOMS, THAT POSE(S) A MODERATE RISK OF MORBIDITY. THIS CONDITION MAY ALSO INCLUDE RX DRUG MANAGEMENT, OR A DECISON FOR MINOR SURGERY. The visit on the day of the encounter encompassed interpreting the data and educating the patient as to the nature of their condition, treatment options available according to their individual PMH, meds, allergies, and overall health/living conditions, as well as any potential risks or complications that may occur from a failure to adhere to, and participate in, the recommended course of therapy. The discussion included a complete verbal, and/or written explanation of the examination results, any x-rays taken, the proposed diagnosis, and outline of the treatment plan. A schedule for future care needs was also explained. The patient verbalized an understanding of the instructions at this time and agreed to be an active participant in their treatment. If the patient should think of any questions or concerns after the visit, I have encouraged the patient to call the office.?Digital Surgery:?FLEXOR : Minimal Incision digital procedure consisting of Percutaneous Flexor Release was discussed with the patient, including the risks of the procedure vs and not having the procedure, the potential procedure complications, the anesthesia, and the usual post-op course. No guarentees were given. We discussed with the patient the complications such as delayed/non healing, excessive scarring, excessive swelling, failure of procedure, floppy toe, infection, numbness, chronic pain, recurrence of the condition, shortened toe, joint stiffness, and possible loss of limb/life. Alternatives to the procedure were also discussed, including conservative care, , The patient will consider surgical treatment.?Shoe Gear Counseling:?The patient and I reviewed the types of shoes they should be wearing. My recommendation included obtaining a well-fitted shoe with a good supportive, non-foldable nor twistable sole, plenty of toe/room for the forefoot, and proper arch support. Based on todays examination, I recommended the patient look for new shoes, by having their feet professionally measured. We discussed that generally the best time of the day for a shoe fitting is the afternoon. Different shoes types and brands to best match the patients occupation and vocation were discussed. Specific brand selection will be up to the patient, their individual foot condition/deformities, and fit. The patient and I reviewed the standard new shoe break in period by wearing them for a few hours a day while checking for redness or sores as wear time is increased. The patient verbally confirmed to understanding the information discussed.? ??Screening/Special Tests:?Fall Risk?Screening:?No falls in the past year ?FALLS: Screening for Future Fall Risk?Have you had any falls with injury in the past year??No * Follow Up:?prn * Images: * Sign off status: Completed true * Provider:?Jackie Salcedo DPM Date:?2024 Generated for Prosper day/Deep/Terrance on:?07/15/2024 04:26 AM EDT History and Physical Notes * HPI (History of Present Illness) Category Sub-Category Detail Notes Category Not es Toe pain Nature: tenderness, aching, stiffnes s, swelling Location: Great toe, 2nd toe, 5th toe, Right foot, 2nd toe, Left foot Duration: , several years Onset/Cause: genetic--dad Course: unchanged Aggravated by: shoes, any pressure Treatments: change in shoes, bra cing/splinting/padding has not helped Examination Category Sub-Category Detail Notes Category Not es Neurological SENSORY: Neurological exa m reveals intact sensorium, pain sensation normal, vibration sensation intact, pinprick sensation is normal in the lower extremities, Pt denies, anesthesia, burning, paresthesia, tingling, B/L BABINSKI REFLEX: absent Dermatologic SKIN FINDINGS: Skin exam reveal s Keratotic lesion(s) located at, Plantar, T9, T6,SUB MTH (s),1,B/L Orthopedic GAIT ABNORMALITY: pronated, abducted, B/L FOOT MORPHOLOGY: Pes Planus structure , B/L--right more severe BUNION: Medially prominent 1 st MPJ, Dorsally prominent 1st MPJ , (+) Pain on palpation, B/L DIGITAL DEFORMITIES: Digital contracture , PIPJ, 2-5 B/L, incompl-reducable with WB, or to push-up test, no over, nor underlapping MUSCLE STRENGTH: 5/5 all groups in a symmetrical fashion , B/L General Examination GENERAL APPEARANCE: pleasant , alert, well nourished, well developed, well hydrated, with good attention to hygene/body habitus, and in no acute distress ORIENTED: person,place, and ti me Vascular DP PULSES (B): 2/4, B/L PT PULSES (B): 2/4, B/L CAPILLARY FILL TIME: 3 secs. per digit, B/L TEMPERTURE GRADIENT (C): warm to cool, p roximal to distal, B/L TROPHIC CONDITION-TEXTURE/ELASTICITY/TURGOR/HAIR GROWTH (B): normal, B/L EDEMA (C): no edema, B/L TELANGECTASIA: absent VARICOSITIES: absent PIGMENTATION: normal, B/L
--- OUTSIDE RECORDS SUMMARY | 2024-07-15 04:27 | XMS_ITS | Patient Health Record ---
Author Organization [facility] Address [address] [place] [address] Care Team Providers Care Exterminator Name Role Phone Eduarda Shrestha Primary Care Provider Unavail able Jackie Salcedo Unavailable [phone] GriffithsCorbinCornel Unavailable [phone] Mario Martínez Unavailable [phone] Corine Mosqueda Unavailable [phone] Allergies Allergen (clinical drug ingredient) Drug/Non Drug Allergy documented on EMR Reaction Allergy Type Onset Date Status Latex Latex rash Allergy Active Substance with sulfonamide structure and antibacterial mechanism of action (substance) Sulfa Antibiotics rash Drug Allergy Active Reason For Referral No Information Medications Medication SIG (Take, Route, Frequency, Duration) Notes Start Date End Date Status Multivitamin - 1 tablet Orally Once a day for 30 day(s) Active [place] 3 Active Amitriptyline HCl 10 MG 1 [...] Are you an other tobacco user? No Problems Problem Type SNOMED Code ICD Code Onset Dates Problem Status W/U Status Risk Notes Problem Acquired hallux valgus (65088408) Hallux valgus (acquired), left foot (M20.12) Active confirmed Problem Acquired hallux valgus (54341404) Hallux valgus (acquired), right foot (M20.11) Active confirmed Problem Acquired hammer toe of right foot (4918471529023 105) Other hammer toe(s) (acquired), right foot (M20.41) Active confirmed Problem Acquired hammer toe of left foot (2621201775295 103) Other hammer toe(s) (acquired), left foot (M20.42) Active confirmed Vital Signs Heart Rate 82 /min 06/01/2024 Blood pressure diastolic 87 mm Hg 06/01/2024 Height 5ft 4 in in 06/01/2024 Blood pressure systolic 137 mm Hg 06/01/2024 Weight 105 lbs 06/01/2024 BMI 18.02 kg/m2 06/01/2024 Encounters Encounter Location Date Provider Diagnosis [address] [address] 08/12/2023 Cornel Griffiths Other hammer toe(s) (acquired), right foot M20.41 ; Hallux valgus (acquired), right foot M20.11 ; Hallux valgus (acquired), left foot M20.12 ; Pain in right foot M79.671 ; Other hammer toe(s) (acquired), left foot M20.42 and Ingrowing nail L60.[address] [address] 11/04/2023 Cornel Griffiths Other hammer toe(s) (acquired), right foot M20.41 ; Hallux valgus (acquired), right foot M20.11 ; Hallux valgus (acquired), left foot M20.12 ; Pain in right foot M79.671 ; Other hammer toe(s) (acquired), left foot M20.42 and Ingrowing nail L60.[address] [address] 01/06/2024 Cornel Griffiths Other hammer toe(s) (acquired), right foot M20.41 ; Hallux valgus (acquired), right foot M20.11 ; Hallux valgus (acquired), left foot M20.12 ; Pain in right foot M79.671 ; Other hammer toe(s) (acquired), left foot M20.42 and Ingrowing nail L60.[address] [facility] [address] 06/01/2024 Jackie Matias Other hammer toe(s) (acquired), right foot M20.41 ; Hallux valgus (acquired), right foot M20.11 ; Hallux valgus (acquired), left foot M20.12 ; Pain in right foot M79.671 and Other hammer toe(s) (acquired), left foot M20.[address] [facility] [address] 11/04/[address] [address] 11/04/[address] [address] 11/04/[address] [address] 11/25/2023 [facility] [address] [address] 01/06/[address] [address] 05/04/2024 Jackie Matias Assessments Encounter Date Diagnosis (ICD Code) Assessment Notes Treatment Notes Treatment Clinical Notes Section Notes 08/12/2023 Hallux valgus (acquired), right foot (ICD-10 - M20.11) 08/12/2023 Other hammer toe(s) (acquired), right foot (ICD-10 - M20.41) 11/04/2023 Other hammer toe(s) (acquired), right foot (ICD-10 - M20.41) 01/06/2024 Other hammer toe(s) (acquired), right foot (ICD-10 - M20.41) 06/01/2024 Hallux valgus (acquired), right foot (ICD-10 - M20.11) 06/01/2024 Other hammer toe(s) (acquired), right foot (ICD-10 - M20.41) 01/06/2024 Hallux valgus (acquired), right foot (ICD-10 - M20.11) 06/01/2024 Hallux valgus (acquired), left foot (ICD-10 - M20.12) 11/04/2023 Hallux valgus (acquired), right foot (ICD-10 - M20.11) 08/12/2023 Hallux valgus (acquired), left foot (ICD-10 - M20.12) 08/12/2023 Pain in right foot (ICD-10 - M79.671) 11/04/2023 Hallux valgus (acquired), left foot (ICD-10 - M20.12) 01/06/2024 Hallux valgus (acquired), left foot (ICD-10 - M20.12) 06/01/2024 Pain in right foot (ICD-10 - M79.671) 06/01/2024 Other hammer toe(s) (acquired), left foot (ICD-10 - M20.42) 01/06/2024 Pain in right foot (ICD-10 - M79.671) 11/04/2023 Pain in right foot (ICD-10 - M79.671) 08/12/2023 Other hammer toe(s) (acquired), left foot (ICD-10 - M20.42) 08/12/2023 Ingrowing nail (ICD-10 - L60.0) 11/04/2023 Other hammer toe(s) (acquired), left foot (ICD-10 - M20.42) 01/06/2024 Other hammer toe(s) (acquired), left foot (ICD-10 - M20.42) 01/06/2024 Ingrowing nail (ICD-10 - L60.0) 11/04/2023 Ingrowing nail (ICD-10 - L60.0) Plan Of Treatment Pending Test Test Name Order Date X ray : Foot, right 3V 04/04/2020 Next Appt Details Provider Name:Jackie Salcedo , 08/03/2024 11:45:00 AM, [address] [facility], [place], [address], Insurance Providers Payer Name Payer Address Payer Phone Subscriber Number Group Number Insured Name Patient Relationship to Insured Coverage Start Date Coverage End Date Blue Benefits [address] [address] [place] [id number] Melissa Middleton Self - patient is the insured Medical (General) History Medical History History ICD Code Stroke covid-19 Surgical History Surgery Date(Month/Year) tonsillectomy 1983 D&C 2007
--- OUTSIDE RECORDS SUMMARY | 2024-07-15 04:27 | XMS_ITS ---
Author Organization [facility] Address [address] [place] [address] Care Team Providers Care In Store Marketing Associate Name Role Phone Fady Ramirez, Eduarda Primary Care Provider Un available Ayo Rajput Jr REASON FOR VISIT abd pain Encounters Encounter Location Date Provider Diagnosis [facility] [address] [place] [address] [place] [address] 01/26/2024 Ayo Rajput Jr Plan Of Treatment No Information Progress Notes * NILESH BEALDOB: [birth year] (49 yo F)Acc No.[id number]:01/26/2024 Progress Notes Patient:?NILESH BEAL Provider:?Ayo Rajput MD :1975???Age:48 Y???Sex:Female D ate:01/26/2024 Address:[address] [facility] Pcp:Eduarda Shrestha M.D. Subjective: * Chief Complaints: * ???1. Abd pain. * Medical History:? Objective: * Vitals:? Assessment: Plan: * Treatment: * * The named appointment provid er may or may not be the originator of this progress note, and it is not deemed complete until electronically signed by the appointment provider. Sign off status: Pending * Provider:?Ayo Rajput MD Date:?1 Generated for Prosper day/Deep/eTransmitting on:?07/15/2024 04:27 AM EDT
--- OUTSIDE RECORDS SUMMARY | 2024-07-15 04:27 | XMS_ITS | Patient Health Record ---
Author Organization [facility] Address [address] [place] [address] Care Team Providers Care Car Wash Attendant Name Role Phone Eduarda Shrestha M.D. Primary Care Provider Un available Ayo Rajput Jr Unavailable [phone] Allergies Allergen (clinical drug ingredient) Drug/Non Drug Allergy documented on EMR Reaction Allergy Type Onset Date Status Latex Latex Unknown Allergy Active sulfamethoxazole / trimethoprim Bactrim rash Drug Allergy Active Results Component Value Reference Range Notes TSH reflex Free T4 Reviewed date:07/28/2023 09:56:58 AM Interpretation: Performing Lab:[facility], [address] [place] [id number] Notes/Report: TSH reflex Free T4 1.00 0.32-4.0 uIU/mL FL upper GI w air w SBFT Reviewed date:07/28/2023 09:57:09 AM Interpretation: Performing Lab: Notes/Report: [address] [address] Fluoroscopy Report Signed Patient: Melissa Zurita MR#: [id number] : 1975 Acct:[id number] Age/Sex: 48 / F ADM Date: 07/26/23 Loc: CHUN Attending Dr: Ayo Rajput MD Ordering Physician: Ayo Rajput MD Date of Service: 07/26/23 Procedure(s): FL upper GI w air w SBFT Accession Number(s): [id number] cc: Ayo Rajput MD; Eduarda Shrestha MD EXAMINATION: XR FLUOROSCOPY UPPER GI WITH AIR AND SMALL BOWEL SERIES CLINICAL INFORMATION: Abdominal pain COMPARISON: None TECHNIQUE: Fluoroscopic air contrast upper GI examination was performed utilizing standard techniques with thin and thick barium and effervescent granules. Numerous spot images were obtained. FINDINGS: Dual and single contrast images of the esophagus demonstrate normal caliber, contour, and mucosal pattern. No evidence of stricture, mass, or ulcerations identified. Esophageal peristalsis was normal. No evidence of hiatus hernia identified. No significant gastroesophageal reflux was seen during the course of the examination and on reflux views. Dual contrast and single contrast images of the stomach demonstrated normal contour and mucosal pattern without evidence of mass, ulceration, or other abnormality. Contrast freely passed into the gastric antrum and duodenal bulb without delay. Single and air-contrast images of the duodenal bulb demonstrate no abnormality. The duodenal sweep has a normal appearance, course, and mucosal fold appearance. The imaged small bowel has a normal fold pattern and caliber. No strictures or masses are present. Contrast is seen in the right colon at 60 minutes. FLUOROSCOPY TIME: 3 minutes 42 seconds Number of Spot Images: 11 Number of Cine: 12 DOSE AREA PRODUCT: 1934 uGy-m2 (microgray-meter squared) FL/FL upper GI w air w SBFT IMPRESSION: Unremarkable upper GI and small bowel series This procedure was performed by Breezy Ng PA-C, and supervised by Dr. Hong Dictated By: Breezy Ng Signed By: <Electronically signed by Breezy Ng in OV> 07/26/23 1223 <Electronically signed by Terry Hong MD in OV> 07/26/23 1226 DD/ 0955 TD/TT: Furniture Removalist'S Assistant: [address] [address] Fluoroscopy Report Signed Patient: Melissa Zurita MR#: [id number] : 1975 Acct:[id number] Age/Sex: 48 / F ADM Date: 07/26/23 Loc: HO.XRAY Attending Dr: Ayo Rajput MD Ordering Physician: Ayo Rajput MD Date of Service: 07/26/23 Procedure(s): FL upp er GI w air w SBFT Accession Number(s): [id number] cc: Ayo Rajput MD; Eduarda Shrestha MD EXAMINATION: XR FLUOROSCOPY UPPER GI WITH AIR AND SMALL BOWEL SERIES CLINICAL INFORMATION: Abdominal pain COMPARISON: None TECHNIQUE: Fluoroscopic air con trast upper GI examination was performed utilizing standard techniques with thin and thick barium and effervescent granules. Numerous s pot images were obtained. FINDINGS: Dual and single cont rast images of the esophagus demonstrate normal caliber, contour, an d mucosal pattern. No evidence of stricture, mass, or ulcerations ident ified. Esophageal peristalsis was normal. No evidence of hiatu s hernia identified. No significant gastroesophageal ref lux was seen during the course of the examination and on reflux views. Dual contrast and si ngle contrast images of the stomach demonstrated normal contour and m ucosal pattern without evidence of mass, ulceration, or other abnormality. Contrast freely passed into the gastric antrum and d uodenal bulb without delay. Single and air-contr ast images of the duodenal bulb demonstrate no abnormality. The duo denal sweep has a normal appearance, course, and mucosal fold appeara nce. The imaged small bowel has a normal fold pattern and caliber. No strictures or masses are present. Contrast is seen in the right co sarahi at 60 minutes. FLUOROSCOPY TIME: 3 minutes 42 seconds Number of Spot Images: 11 Number of Cine: 12 DOSE AREA PRODUCT: 1934 uGy-m2 (microgr ay-meter squared) F L/FL upper GI w air w SBFT IMPRESSION: Unremarkable upper G I and small bowel series This procedure was p erformed by Breezy Ng PA-C, and supervised by Dr. Hong Dictated By: Breezy Ng Signed By: <Electro nically signed by Breezy Ng in OV> 07/26/23 1223 <Electronically sign ed by Terry Hong MD in OV> 07/26/23 1226 DD/ 0955 TD/TT: Furniture Removalist'S Assistant: Reason For Referral No Information Medications Medication SIG (Take, Route, Frequency, Duration) Notes Start Date End Date Status Hyoscyamine Sulfate ER 0.375 MG 1 tablet Orally every 12 hrs for 30 day(s) 07/25/2023 Active MiraLax 17 GM/SCOOP 1 scoop mixed with 8 ounces of fluid Orally Once a day for 30 day(s) Active Multivitamin Active Colace Active Hyoscyamine Sulfate 0.125 MG 1 tablet as needed Orally Four times a day for 30 days 07/28/2023 Active Immunizations Vaccine Route Administration Date Status Comme nts Influenza Unknown 01/18/2023 Administered Social History Tobacco Use: Social History Observation Description Date Details (start date - stop date) Never Smoker NA - NA Tobacco Use/Smoking Question Answer Notes Patient is a nonsmoker Alcohol Screen Question Answer Notes Did you have a drink contain ing alcohol in the past year? Yes How often did you have a dri nk containing alcohol in the past year? Monthly or less (1 point) How many drinks did you have on a typical day when you were drinking in the past year? 1 or 2 drinks (0 point) How often did you have 6 or more drinks on one occasion in the past year? Never (0 point) Points 1 Interpretation Negative Problems Problem Type SNOMED Code ICD Code Onset Dates Problem Status W/U Status Risk Notes Problem [id number] Generalized abdominal pain (R10.84) Active confirmed Vital Signs Temperature 98.5 degrees Fahrenheit 07/25/2023 Blood pressure diastolic 00 mm Hg 07/25/2023 Height 5 ft 4 in in 07/25/2023 Blood pressure systolic 000 mm Hg 07/25/2023 Weight 118 lbs 07/25/2023 BMI 20.25 kg/m2 07/25/2023 Encounters Encounter Location Date Provider Diagnosis [facility] [address] [place] [phone] 07/25/2023 Ayo Rajput Jr Generalized abdominal pain R10.84 [facility] [address] [place] [phone] 07/28/2023 Ayo Rajput Jr Generalized abdominal pain R10.84 [facility] [address] [place] [phone] 01/11/2024 Ayo Rajput Jr Assessments Encounter Date Diagnosis (ICD Code) Assessment Notes Treatment Notes Treatment Clinical Notes Section Notes 07/25/2023 Generalized abdominal pain (ICD-10 - R10.84) We discussed her symptoms today. They still appear consistent with the irritable bowel syndrome and we have recommended she discontinue dicyclomine and begin hyoscyamine. We discussed the use of fiber and recommended she supplement to obtain 20-30 g of fiber on a daily basis. She can use MiraLax as needed for her constipated symptoms. Hopefully this will help to improve her sensation of not emptying. TSH will be obtained and she will have an upper GI with small bowel follow-through. Followup in 6 months. 07/28/2023 Generalized abdominal pain (ICD-10 - R10.84) Plan Of Treatment Pending Test Test Name Order Date PANCREATIC ELASTASE 02/03/2023 FECAL FAT QUAL 02/03/2023 XR GI SMALL BOWEL SERIES 07/25/2023 US ABD 02/03/2023 TSH REFLEX FREE T4 07/25/2023 Insurance Providers Payer Name Payer Address Payer Phone Subscriber Number Group Number Insured Name Patient Relationship to Insured Coverage Start Date Coverage End Date [employer] [place] [address] [address] [place] [address] [id number] MELISSA MCKENZIE Self - patient is the insured Medical (General) History Medical History History ICD Code CVA, 1980 Surgical History Surgery Date(Month/Year) tonsillectomy and adenoidectomy appendectomy dilatation and curettage
--- OUTSIDE RECORDS SUMMARY | 2024-07-15 04:27 | XMS_ITS | Encounter Summary ---
Author Organization [facility] Address [address] [place] [phone] Phone Care Team Providers Care Manufacturing Support Engineer Name Role Phone Eduarda Shrestha MD, MPH Primary Care Provid er Encounter Details Date Type Department Care Team (Late st Contact Info) Description 05/08/2021 Procedure Pass [facility] Endoscopy Admitting Dept Virtual Department [address] [place] [address] Social History Tobacco Use Types Packs/Day Years Used Date Smoking Tobacco: Never Smokeless Tobacco: Never Alcohol Use Standard Drinks/Week Comments Yes 0 (1 standard drink = 0.6 oz pur e alcohol) occasionally Child or Family Care Answer Date Record ed Do you have problems with on e of the following making it difficult for you to work, study, or receive health care? No 07/18/2020 Education Answer Date Recorded Are you interested in help w ith more adult education (for example, completing high school, GED, job training, learning the [place] language, technical skills, or developing parenting skills)? No 07/18/2020 Food Answer Date Recorded Within the past 6 months we worried whether our food would run out before we got money to buy more. Never True 07/18/2020 Within the past 6 months the food we bought just didn't last and we didn't have enough money to get more. Never True Paying for Meds Answer Date Recorded Do you have trouble paying for medicines? No 07/18/2020 Paying Utility Bills Answer Date Record ed Do you have trouble paying your heating or elect ricity bill? No 07/18/2020 Transportation Answer Date Recorded Has the lack of transportati on kept you from medical appointments or from getting medications? No 07/18/2020 Sex and Gender Information Value Date Recorded Sex Assigned at Female 04/27/2019 1:43 PM EST Gender Identity Female 04/27/2019 1:43 PM EST Sexual Orientation Straight 04/27/2019 1: 43 PM EST documented as of this encounter Plan of Treatment Upcoming Encounters Date Type Department Care Team (Late st Contact Info) Description 12/26/2024 3:20 PM EDT Appointment [facility] [address] [place] [address] Eduarda Shrestha MD, MPH [address] [facility] [address] [place] [address] [email or web address] documented as of this encounter Visit Diagnoses Not on filedocumented in this encounter Additional Health Concerns Infection Onset Date Last Indicated Resolved Time COVID-19 08/15/2022 08/15/2022 09/05/2022 1:21 AM EDT Assessment Noted Time PHQ-2 Depression Total Score: 0 07/19/19 1:59 PM EDT documented as of this encounter Care Teams Manufacturing Support Engineer Relationship Specialty Start Date End Date Eduarda Shrestha MD, MPH [address] [facility] [place] [address] [email or web address] PCP - General Family Medicine 04/20/19 documented as of this encounter Additional Source Comments The information contained in this document represents components of the legal health record. It is not the complete legal health record.[facility]
--- OUTSIDE RECORDS SUMMARY | 2024-07-15 04:27 | XMS_ITS | Clinical Summary ---
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 Active fluticasone propionate (FLONASE) 50 mcg/actuation nasal spray 1 spray by Nasal route daily. Active b complex vitamins capsule Take 1 capsule by mouth daily. Active omega 1-itw-knz-fish oil 1,000 mg (120 mg-180 mg) Cap Take 1 capsule by mouth daily. Active polyethylene glycol (MIRALAX) 17 gram/dose powder Take 17 g by mouth daily. Active selenium sulfide 2.25 % ShamIndications:Cher a versicolor APPLY TOPICALLY TWICE A WEEK 180 mL 1 12/08/2021 Active Additional Information Patient not taking.Reported on 12/21/2023 mxzhcdyv-ycn-faslwdp gluconate (CENTRUM WITH IRON) 9 mg iron/15 mL Liqd Take 15 mL by mouth daily. Active coenzyme Q10 100 mg capsule Take 100 mg by mouth daily. Active Bacillus coagulans-inulin 1 billion-250 cell-mg Cap Take 250 mg by mouth daily. Active cranberry fruit concentrate 250 mg Chew Take by mouth. Active docusate sodium (COLACE) 50 MG capsule Take 50 mg by mouth 2 (two) times a day. Active senna (SENOKOT) 8.6 mg tablet Take 1 tablet by mouth daily. Active psyllium (METAMUCIL) 3.4 gram packet Take 1 packet by mouth daily. Active levonorgestreL (MIRENA) 21 mcg/24 hr (8 yrs) 52 mg intrauterine device 1 Device by Intrauterine route. Active ammonium lactate (AMLACTIN) 12 % cream Apply topically as needed. Up to 8 times a day 385 g 2 12/21/2023 Active Active Problems Problem Noted Date Diagnosed Date Anogenital warts 07/22/2020 Assessment & Plan (07/22/2020 10:39 AM EDT): Cont treatment with [facility]. Reviewed benign nature in terms of health although they are very emotionally distressing to Melissa. History of CVA (cerebrovascular accident) 2020 Overview (07/18/2020): Age 4 yo Had aphasia, rt sided weakness which carries on to this day Other irritable bowel syndrome 04/30/2019 Assessment & Plan (12/21/2023 3:08 PM EDT): Following with [facility] at this point. Assessment & Plan (04/30/2019 10:21 AM EST): Continue amitryptiline. Dose confirmed with pharmacy. 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 Dystrophic nail 04/27/2019 Overview (07/22/2020): Tried griseofulvin- didn't help. Podiatry said related to pressure on nail bed which is exactly in line with exam Assessment & Plan (07/22/2020 10:37 AM EDT): Due to chronic pressure. No further treatment indicated Assessment & Plan (05/18/2019 10:02 AM EST): Stopped medication because of side effects. Will try griseofulvin instead. In the meantime, cushioning of toe with a O-pad Hammer toe of right foot 04/27/2019 Immunizations Name Administration Dates Next Due COVID-19 (Pre-01/17) Moderna Vaccine, mRNA, PF 05/15/2020,04/12/2020 Influenza Quadrivalent Prese rvative Free IM 01/09/2020,01/03/2019,01/11/2018,2016 Influenza Quadrivalent w/ Preservative IM 12/26/2017 Tdap 03/12/2022 Family History Medical History Relation Comments No Known Problems Brother Diabetes Mother Fibroids Mother hysterectomy Glaucoma Mother Renal artery stenosis Mother Breast cancer Neg Hx Colon cancer Neg Hx Heart disease Neg Hx Ovarian cancer Neg Hx Pancreatic cancer Neg Hx Relation Status Comments Brother Alive Father Alive unknown Mother Alive Social History Tobacco Use Types Packs/Day Years Used Date Smoking Tobacco: Never Passive Smoke Exposure: Never Smokeless Tobacco: Never Tobacco Cessation:Counseling Given: Not Answered Alcohol Use Standard Drinks/Week Comments Yes 0 (1 standard drink = 0.6 oz pur e alcohol) occasionally Child or Family Care Answer Date Record ed Do you have problems with on e of the following making it difficult for you to work, study, or receive health care? No 12/18/2023 Education Answer Date Recorded Are you interested in help w ith more adult education (for example, completing high school, GED, job training, learning the Finnish language, technical skills, or developing parenting skills)? No 12/18/2023 Are you concerned about learning? Not on file 12/18/2023 No 12/18/2023 Yes 12/18/2023 Food Answer Date Recorded Within the past 6 months we worried whether our food would run out before we got money to buy more. Never True 12/18/2023 Within the past 6 months the food we bought just didn't last and we didn't have enough money to get more. Never True Residential Stability Answer Date Recor ded What is your housing situation today? I have morris sing 12/18/2023 How many times have you move d in the past 12 months? Zero (I did not move) 12/18/2023 Paying for Meds Answer Date Recorded Do you have trouble paying for medicines? No 12/18/2023 Paying Utility Bills Answer Date Record ed Do you have trouble paying your heating or elect ricity bill? No 12/18/2023 Transportation Answer Date Recorded Has the lack of transportati on kept you from medical appointments or from getting medications? No 12/18/2023 Unemployment Answer Date Recorded Are you currently unemployed or working on a part-time or temporary basis, and looking for work? No 03/06/2022 Digital Access Answer Date Recorded No 12/18/2023 Yes 12/18/2023 Do you have reliable internet access at home? Ye s 12/18/2023 Do you have a device (e.g., phone, tablet, computer) with a working camera? Yes 12/18/2023 Intimate Partner Violence Answer Date R ecorded Denied Basic Needs Not on file 12/18/2023 In the past 12 months have y ou been in a relationship with a person who hurts, threatens, or tries to control you? No 12/18/2023 Worried food would run out Not on file 12/17 In the past 12 months have y ou been in a relationship with a person who hurts, threatens, or tries to control you? No 12/18/2023 Sex and Gender Information Value Date Recorded Sex Assigned at Female 04/27/2019 1:43 PM EST Gender Identity Female 04/27/2019 1:43 PM EST Sexual Orientation Straight 04/27/2019 1: 43 PM EST Last Filed Vital Signs Vital Sign Reading Time Taken Comments Blood Pressure 126/80 12/21/2023 2:25 PM EDT Pulse 67 12/21/2023 2:25 PM EDT Temperature 38.6 ??C (101.4 ??F) 08/17/2022 1:30 PM E DT Respiratory Rate 15 05/08/2021 9:47 AM EST Oxygen Saturation 98% 12/21/2023 2:25 PM EDT Inhaled Oxygen Concentration 5% 05/08/2021 9 :13 AM EST Weight 58 kg (127 lb 12.8 oz) 12/21/2023 2:25 PM EDT Height 164 cm (5' 4.57 ) 12/21/2023 2:25 PM EDT w/ shoes Body Mass Index 21.55 12/21/2023 2:25 PM EDT Plan of Treatment Upcoming Encounters Date Type Department Care Team (Late st Contact Info) Description 12/26/2024 3:[address] [facility] [address] [place] [address] Eduarda Shrestha MD, MPH [address] [facility] [address] [place] [address] [email or web address] Health Maintenance Due Date Last Done Comments LIPID PANEL 1975 HEPATITIS B VACCINES (1 of 3 - 19+ 3-dose series) 1992 PAP SMEAR 1994 COLOGUARD 2018 FIT TEST 2018 FOBT 2018 SIGMOIDOSCOPY 2018 VIRTUAL COLONOSCOPY 2018 PNEUMOCOCCAL VACCINES (50+ years) (1 of 1 - PCV) 05/31/2023 ZOSTER VACCINES (1 of 2) 05/31/2023 INFLUENZA VACCINE (#1) 2023 , 01/13/2022, 01/08/2021, Additional history exists COVID-19 VACCINE ( season) 2023 03/13/2021, 05/15/2020, 04/12/2020 DEPRESSION SCREENING 12/17/2024 12/18/2023 MAMMOGRAM 10/27/2025 10/28/2023, 03/29, 09/03/2022, Additional history exists COLONOSCOPY 05/08/2031 05/08/2021 COLORECTAL CANCER SCREENING 05/08/2031 Adult Td,Tdap Booster 03/12/2032 03/12/2022 HIV ONE-TIME SCREENING (18-65 YEARS) Completed 05/11/2019 SMOKING STATUS SCREENING (Once After 26 Yrs) Completed 12/21/2023 HEPATITIS B SCREENING Completed 02/15/2024, 023 HEPATITIS C SCREENING Completed 02/15/2024 , 07/23/2022, 05/11/2019, Additional history exists HEPATITIS A VACCINES Aged Out No long er eligible based on patient's age to complete this topic HIB VACCINES Aged Out No longer eligi ble based on patient's age to complete this topic MENINGOCOCCAL VACCINES (ACWY) Aged Out No longer eligible based on patient's age to complete this topic Medical Devices Implanted Type Area Sound Tester Device Identifier Shelf Expiration Date Model / Serial / Lot Mirena Procedures Procedure Name Priority Date/Time Associated Diagnosis Comments HEPATITIS B SURFACE ANTIGEN Routine 02/15/2024 10:32 AM EST Annual physical exam HEPATITIS C ANTIBODY, QUALITATIVE Routine 02/15/2024 10:32 AM EST Annual physical exam HM MAMMOGRAPHY Routine 10/28/2023 9:53 AM EDT ENDOSCOPY, COLON 05/08/2021 9:07 AM EST OUTSIDE HIV Routine 05/11/2019 from Last 3 Months or Most Recently Relevant to Health Maintenance Results * Hepatitis B surface antigen (02/15/2024 10:32 AM EST) Blood Eduarda Srhestha MD, MPH LAB BLOOD OR DERABLES Performing Organization Address [facility] Co de Phone Number [address] [address] * Hepatitis C antibody, qualitative (02/15/2024 10:32 AM EST) Blood Eduarda Shrestha MD, MPH LAB BLOOD OR DERABLES Performing Organization Address [facility] Co de Phone Number [address] [address] * MAMMOGRAPHY FOR RESULT ENTRY ONLY (10/28/2023 9:53 AM EDT) Historical Provider MD JUWAN Connell * ENDOSCOPY, COLON (05/08/2021 9:07 AM EST) Narrative Transcriptions Tucker Tom MD - 05/08/2021 9:07 AM EST Patient Name: Melissa Zurita Attending MD:: TUCKER TOM MD Procedure Date: 05/08/2021 9:07 AM Date of : 1975 Age: 45 Admit Type: Outpatient Gender: Female Room: Endo 04 Referring MD: Eduarda Shrestha Exam Type: Colonoscopy Indications: Fat malabsorption Medications: Monitored Anesthesia Care Procedure: Informed consent was obtained from the patientafter discussion of the indications, limitations, alternatives, benefits, and risks of the procedure. Risks specifically discussed include but are not limited to medication reactions, missed lesions, bleeding, perforation, or the need for emergent surgery. Throughout the procedure, the patient's blood pressure, pulse, end-tidal CO2, and oxygensaturations were monitored continuously. The Olympus adult variable colonoscope [id number] #3 was introduced through the anus and advanced to the terminal ileum, with identification of theappendiceal orifice and IC valve. The colonoscopy was performed without difficulty. The patient tolerated the procedure well. The quality of the bowelpreparation was excellent. Complications: No immediate complications. Estimated blood loss:None. Findings: The terminal ileum appeared normal. This wasbiopsied with a cold forceps for histology. Two hyperplastic and sessile polyps were found inthe descending colon. The polyps were 4 mm in size.These polyps were removed with a cold biopsy forceps. Resection and retrieval were complete. Examination of the right colon was repeated in retroflexion and again in NBI. Retroflexion wasalso performed in the rectum. The entire examined colon appeared normal. There was bulging into the cecum noted on the mesenteric aspect, but no mass could be palpated in that region (RLQ). Biopsies for histology were taken with a coldforceps from the entire colon for evaluation of microscopic colitis. The exam was otherwise without abnormality. Impression: - The examined portion of the ileum was normal. Biopsied. - Two 4 mm polyps in the descending colon, removed with a cold biopsy forceps. Resected andretrieved. - The entire examined colon is normal. - The examination was otherwise normal. - Biopsies were taken with a cold forceps from the entire colon for evaluation of microscopiccolitis. Recommendation: - Patient has a contact number available for emergencies. The signs and symptoms of potential delayed complications were discussed with thepatient. Return to normal activities tomorrow. Written discharge instructions were provided to thepatient. - Await pathology results. - Return to GI office as previously scheduled. Correlate findings with cross sectional imaging inthe RLQ Tucker Tom TUCKER TOM MD 05/08/2021 9:49:42 AM This report has been signed electronically. Number of Addenda: 0 Note Initiated On: 05/08/2021 9:07 AM Procedure Code(s): --- Professional --- 45389, Colonoscopy, flexible; with biopsy, single or multiple --- Technical --- 12804, Colonoscopy, flexible; with biopsy, single or multiple CPT copyright 2020 [employer]. All rights reserved. The codes documented in this report are preliminary and upon rn psychiatric reviewmay be revised to meet current compliance requirements. 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 It is not the complete legal health record.[facility]
--- OUTSIDE RECORDS SUMMARY | 2024-07-15 04:27 | XMS_ITS ---
[facility] Organization [facility] Address [address] [place] [address] Care Team Providers Care Gusset Edger Name Role Phone Eduarda Shrestha Primary Care Provider Unavail able Jackie Salcedo Unavailable [phone] REASON FOR VISIT Request appt Encounters Encounter Location Date Provider [facility] [place] [address] 05/04/2024 Jackie Salcedo Plan Of Treatment Next Appt Details Provider Name:Jackie Salcedo , 08/03/2024 11:45:00 AM, [facility] [place] [address] [address], [address], Progress Notes * JOHNSHARLENEMelissa LOUSI LDOB:1975 (48 yo F)Acc No.[id number]:05/04/2024 Patient:?Melissa ODELL Leandro :1975???Age:48 Y???Sex:Female Address:[address] [place] [address] [place], [address] * true * Date:? Generated for Printi barb/Deep/eTransmitting on:?07/15/2024 04:26 AM EDT
[2024-07-15 04:47] LABS: MANUAL DIFF FLAG NO
[2024-07-15 04:49] LABS: Basophils Absolute Auto 0.1 X10*3/uL (0.0-0.2); Basophils Percent Auto 0.5 % (0-2); Eosinophils Absolute Auto 0.1 X10*3/uL (0.0-0.4); Hemoglobin 13.2 g/dl (12.0-16.0); Imm Gran Abs Auto 0.05 X10*3/uL (0.00-0.03); Imm Gran Pct Auto 0.4 % (0.0-0.4); Lymphocytes Absolute Auto 0.8 X10*3/uL (1.2-4.9); Lymphocytes Percent Auto 6.6 % (20-40); Mean Corpuscular HGB Conc 33.8 g/dl (31.0-35.0); Mean Corpuscular Hemoglobin 32.4 pg (27.0-33.0); Mean Corpuscular Volume 95.6 fL (80.0-98.0); Mean Platelet Volume 8.7 fL (9.4-12.3); Monocytes Absolute Auto 0.3 X10*3/uL (0.1-1.2); Monocytes Percent Auto 2.9 % (2-11); Neutrophils Absolute Auto 10.2 x10*3/uL (2.0-8.3); Neutrophils Percent Auto 88.6 % (45-73); Platelet Count 302 X10*3/uL (160-400); Red Blood Count 4.08 X10*6/uL (4.20-5.50); Red Cell Distribution Width 13.2 % (11.0-16.0); White Blood Count 11.5 X10*3/uL (4.8-10.8)
[2024-07-15 05:07] LABS: Alanine Aminotransferase 15 U/L (0-31); Alkaline Phosphatase 66 U/L (39-117); Anion Gap 14 (12-20); Aspartate Amino Transferase 23 U/L (5-31); Bilirubin Direct 0.2 mg/dL (0.0-0.5); Bilirubin Total 0.5 mg/dL (0.0-1.0); Blood Urea Nitrogen 15 mg/dL (9-16); Calcium 8.3 mg/dL (8.4-10.2); Carbon Dioxide 23 mmol/L (22-29); Chloride 111 mmol/L (96-108); Creatinine Clr Calc Pharmacy 79.6; Estimated Glomerular Filt Rate > 60; Glucose Random 145 mg/dL (60-115); Potassium 3.2 mmol/L (3.3-5.1); Sodium 145 mmol/L (135-145); Total Protein 6.7 g/dL (6.5-8.0)
--- NOTE | 2024-07-15 05:56 | P.HPHOSP_ITS ---
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 Patient reports receiving the injection approximately 17:00 on Tuesday07/14/2024. Later in the evening patient noted swelling at the 3 injection sites at the top of the forehead and this then led to swelling that worsened to both eyes. Patient denies any hives, wheezing, shortness of breath, tightness in the throat or any other symptoms. Patient is able to open the right eye slightly and left eye is more swollen than the right. Patient received 125 mg of methylprednisolone in the emergency department and patient overall is feeling improved. Patient remains slightly tachycardic with a heart rate anywhere from 101-110. Patient is currently in a sinus rhythm. Vital signs are otherwise stable. Pulse ox on room air is 96%. Patient is afebrile. Patient has a mild leukocytosis and a potassium of 3.2. Patient received 20 mEq of KCl in the ED, Patient reports receiving an injection of Dysport back in March of 2024 and denies any type of reaction. Patient has never had Botox before. Patient is being admitted under observation and patient will receive 1 dose of methylprednisolone 60 mg at 15:00 and will start prednisone taper Tuesday07/16/2024. Review of Systems 2 Review of Systems: Patient currently denies any chest pain, shortness of breath, wheezing, headache, rash or hives. Patient states the right eye is now starting to open but the left eye she still can not open. Patient denies any pain in both eyes. Patient reports wearing glasses just for visual acuity. Patient has history of IBS-C but is not encouraging constipation issues at this time. Patient has no permanent deficits from her stroke at age 4. Pt denies use of tobacco, alcohol regularly, marijuana, or illicit drug use. Yes all other systems are reviewed and are negative [facility] Medical History (Updated 07/15/24 @ 06:13 by Ne Mey, RESIDENTIAL LEASING MANAGER-BC) Gastroenteritis Kidney stones H/O irritable bowel syndrome Hx of completed stroke Cognitive capacity: Alert and orientated x3, able to follow commands Functional capacity: independent ambulation Patient : No (pt states no) Social History Patient Tobacco Use Status: Never used Tobacco Smoked in Last 30 Days: No Use of substances other than those prescribed or required for medical reasons: No Advance Directives: No Advance Directives Information Provided: Yes Do you have a plan to hurt others: No Plan Patient : No (pt states no) Ebola Risk: Travel/Contact With Anyone From Affected Area/s: No Has Patient Experienced Ebola Symptoms: No Meds Allergies Allergy/AdvReac Type Severity Reaction Status Date / Time onabotulinumtoxinA Allergy Severe Angioedema Verified 07/15/24 05:28 [From Botox] cephalexin [Keflex] Allergy Unknown Rash Verified 07/15/24 03:10 Sulfa (Sulfonamide Allergy Unknown Anxiety Verified 07/15/24 03:10 Antibiotics) Active Medications: Current Medications Acetaminophen (Acetaminophen 325 Mg Tablet) 650 mg PO Q6H PRN PRN Reason: Pain, Mild 1-3,fever,headache Calcium Carbonate (Calcium Carbonate 750 Mg Tab.Chew) 750 mg PO Q4H PRN PRN Reason: Heartburn Diphenhydramine HCl (Diphenhydramine Hcl 50 Mg/Ml Vial) 25 mg IVPUSH Q4H PRN PRN Reason: Itching Magnesium Hydroxide (Milk Of Magnesia 30 Ml Oral.Susp) 30 ml PO DAILY PRN PRN Reason: Constipation Methylprednisolone Sodium Succinate (Methylprednisolone Sod Succ 125 Mg/2 Ml Vial) 60 mg IVPUSH ONCE ONE Stop: 07/15/24 15:01 Ondansetron HCl (Ondansetron Hcl 4 Mg/2 Ml Vial) 4 mg IVPUSH Q8H PRN PRN Reason: Nausea and Vomiting Polyethylene Glycol (Polyethylene Glycol 3350 17 Gm Powd.Pack) 17 gm PO DAILY PRN PRN Reason: Constipation Prednisone (Prednisone 10 Mg Tablet) 10 mg PO DAILY SALTY Stop: 07/27/24 09:01 Sodium Chloride (0.9 % Sodium Chloride Flush 3 Ml Syringe) 3 ml IVFLUSH QSHIFT [facility] Physical Exam 2 Vital Signs and Narrative: Vital Signs: Last Vital Signs Temp 98.5 F 07/15/24 03:06 Pulse 95 07/15/24 04:00 Resp 15 07/15/24 04:00 BP 133/65 07/15/24 04:00 Pulse Ox 99 07/15/24 04:00 O2 Del Method Room Air 07/15/24 04:00 BMI result Body Mass Index 18.1 Alert and orientated X3, able to give good history. Neuro: visual acuity impaired due to periorobital swelling of both eyes, pt can open R eye slightly, Left eye still closed (angioedema from Botox), otherwise no deficits EYES: unable to examine at this time due to level of swelling ENT: hearing intact, no issues with swallowing, uvula midline, lips moist, nares patent no epistaxis Cardiac: S1 S2 RRR, tachy 110, no murmur, no JVD, no edema in Lower ext Pulmonary: lungs clear to auscultation B, no wheezing or stidor noted Abdominal: BS active in all 4 quadrants, no guarding, tenderness, rebounding MSK: strength 5/5 upper and lower extremities : not examined Extremities: no edema in lower extremities, PT and DP pulses palpable +2 Psych: mood stable, judgement and insight good Skin: 3 small huggins at top of forehead, swelling in eyes only at this time, no rash or hives noted on exam Results Labs 07/15/24 04:43 07/15/24 04:43 Labs: Laboratory Results - last 24 hr 07/15/24 04:43 MCV 95.6 MCH 32.4 MCHC 33.8 RDW 13.2 Plt Count 302 MPV 8.7 L Immature Gran % (Auto) 0.4 Neut % (Auto) 88.6 H Lymph % (Auto) 6.6 L [place] % (Auto) 2.9 Eos % (Auto) 1.0 Baso % (Auto) 0.5 Lymph # (Auto) 0.8 L [place] # (Auto) 0.3 Eos # (Auto) 0.1 Baso # (Auto) 0.1 Abs Immat Gran (auto) 0.05 H Absolute Neuts (auto) 10.2 H Absolute Nucleated RBC 0.000 Nucleated RBC % (auto) 0.0 Anion Gap 14 Estim Creat Clear Calc 79.6 Estimated GFR > 60 Random Glucose 145 H Calcium 8.3 L D Total Bilirubin 0.5 Direct Bilirubin 0.2 AST 23 ALT 15 Alkaline Phosphatase 66 Total Protein 6.7 Albumin 4.0 ECG Prior ECG tracings: not available for review Assessment and Plan (1) Angioedema: Qualifiers: Encounter type: initial encounter Qualified Code(s): T78.3XXA - Angioneurotic edema, initial encounter Status: Acute (2) Tachycardia: Status: Acute (3) Hypokalemia: Status: Acute (4) H/O irritable bowel syndrome: Status: Acute (5) Hx of completed stroke: Status: Acute Plan Patient is a 49-year-old female with past medical history 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 Patient is being admitted for observation and to continue 1 additional dose of IV steroids and then prednisone taper to start Tuesday morning patient is also tachycardic requiring telemetry and potassium was 3.2 Angioedema secondary to Botox injection involving both eyes/ tachycardia -patient received methylprednisolone 125 mg x 1 in the ED, patient received 60 mg at 15:00 07/15/2024 and then start prednisone taper on 07/16/2024 -cold compress as needed to bilateral eyes -vital signs every 4 hours -telemetry for tachycardia, patient currently in a normal sinus rhythm -patient should keep head elevated -Benadryl IV as needed for itching or hives, if they occur. -allergies updated and Botox is now listed. Unclear if patient will be at risk if she decides to use Dysport in the future. Hypokalemia -ED provided 20 mEq of KCl for potassium of 3.2 -repeat potassium prior to discharge History of IBS-C -patient has history of constipation and normally takes MiraLax p.r.n. which is ordered -patient denies any issues with constipation at this time DVT prophylaxis: Low risk and deferred No indication for PPI prophylaxis Med rec pending: Patient does not take any prescription meds at home Patient will require observation for further monitoring of angioedema involving both eyes secondary to a Botox injection on 07/14/2024. Patient has mild tachycardia requiring telemetry and a potassium of 3.2 requiring potassium supplementation. In addition patient will receive additional dose of IV steroids and then changed to taper on Tuesday. Total time managing care of this patient today: 30 minutes. Quality Stroke Does the patient have a stroke diagnosis?: No Reason for No Anti-thrombotic by Day Two: Drug treatment not indicated VTE Prior VTE?: No VTE Risk Level:: Medical - low VTE Device Contraindication: Treatment Not Indicated VTE Drug Contraindication: Treatment Not Indicated
[2024-07-15] MEDS: Potassium Chloride ER 20 MEQ TAB.ER.PRT PO ×2 (06:15→06:41)
--- NOTE | 2024-07-15 07:22 | MHC.EDTECH ---
Patient given breakfast tray
[2024-07-15] MEDS: 0.9 % Sodium Chloride Flush 3 ML SYRINGE IVFLUSH ×2 (07:56→08:58)
--- NOTE | 2024-07-15 08:35 | PHA.MEDREC ---
Addendum entered by Amita Castellanos RPh 07/15/24 08:50: Reviewed by [facility] Original Note: Pharmacy Consult ? Medication Reconciliation Pharmacy has completed the medication reconciliation. Spoke to patient to confirm med list.
[2024-07-15] MEDS: methylPREDNISolone Sod Succ 40 MG/ML VIAL IVPUSH ×2 (08:58→16:48)
--- NOTE | 2024-07-15 09:25 | PM.EVENT ---
Event Note Date of Service: 07/15/24 Event Note: seen and examined this morning follow up for b/l eye swelling after receiving botox injections for the first time patient reports mild improvement in swelling of the left eye which was completely swollen shut last night eye remains swollen L>R no tongue or lip swelling Angioedema secondary to Botox injection involving both eyes s/p one dose of epi in ED Continue systemic steroids, IV Benadryl p.r.n., IV Pepcid allergies updated and Botox is now listed. Unclear if patient will be at risk if she decides to use Dysport in the future. Hypokalemia Status post replacement Repeat in a.m. Time Spent With Patient Time: Total time managing care of this patient today ____ minutes.
[2024-07-15] MEDS: Acetaminophen 325 MG TABLET 650 MG PO (12:34)
[2024-07-15] MEDS: diphenhydrAMINE HCL 50 MG/ML VIAL 25 MG IVPUSH ×2 (12:58→19:35)
--- NOTE | 2024-07-15 13:08 | PM.EVENT ---
Event Note Date of Service: 07/15/24 Event Note: Pt and report worsening facial swelling involving bilateral orbits and upper cheeks. No tongue or throat swelling and no dyspnea. Will give 125 mg Solu-medrol again, continue 40 mg q8h; continue famotidine + Benadryl If develops dyspnea or oral swelling will give epinephrine IM Time Spent With Patient Time: Total time managing care of this patient today ____ minutes.
--- NOTE | 2024-07-15 14:43 | MHC.CM.PN ---
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
--- NOTE | 2024-07-15 15:00 | PC.NURSE ---
Provider, Zakia TORRES notified at 12PM of worsening facial and periorbital swelling. She denies any difficulty with swallowing, tongue swelling or difficulty breathing. Pain reported under the left eye as 3/10. Patient medicated with benadryl and acetaminophen. Dr. Sanchez bedside to evaluate patient. Order for 125mg solumedrol once to be given. Patient medicated once order was available. MELISSA Koehler notified of very slight improvement in swelling on the right side of patient's face and no improvement on the left side.
[2024-07-15] MEDS: polyethylene glycoL 3350 17 GM POWD.PACK PO (19:42)
[2024-07-15] MEDS: traZODone HCL 50 MG TABLET PO (20:00)
[2024-07-16] MEDS: methylPREDNISolone Sod Succ 40 MG/ML VIAL IVPUSH (00:07)
[2024-07-16] MEDS: diphenhydrAMINE HCL 50 MG/ML VIAL 25 MG IVPUSH ×3 (00:08→08:25)
[2024-07-16] MEDS: 0.9 % Sodium Chloride Flush 3 ML SYRINGE IVFLUSH ×2 (00:10→08:26)
[2024-07-16 03:16] VITALS: BP 112/61; PULSE 71; RESP 18; TEMP 36.3; O2SAT 98
--- NOTE | 2024-07-16 03:33 | PC.NURSE ---
Addendum entered by HEDY Kaur 07/16/24 03:42: Dr. Avalos notified and aware of worsening right periorbital swelling. Addendum entered by HEDY Kaur 07/16/24 03:37: will continue to monitor Original Note: when I went to administer patients 0300 benadryl, her right eye looked more swollen than initial assessment and patient says she noticed it when she got up to use the bathroom but is still able to see out of it. left eye has no changes from initial assessment.
[2024-07-16 07:49] LABS: Anion Gap 12 (12-20); Blood Urea Nitrogen 24 mg/dL (9-16); Calcium 9.3 mg/dL (8.4-10.2); Carbon Dioxide 25 mmol/L (22-29); Chloride 108 mmol/L (96-108); Creatinine Clr Calc Pharmacy 79.6; Estimated Glomerular Filt Rate > 60; Glucose Random 132 mg/dL (60-115); Potassium 4.3 mmol/L (3.3-5.1); Sodium 141 mmol/L (135-145)
[2024-07-16 08:00] VITALS: BP 110/51; PULSE 80; RESP 20; TEMP 36.9; O2SAT 100
[2024-07-16] MEDS: Famotidine/PF 20 MG/2 ML VIAL IVPUSH (08:25)
[2024-07-16] MEDS: Acetaminophen 325 MG TABLET 650 MG PO (08:25)
--- NOTE | 2024-07-16 09:30 | PM.DS ---
DS: Providers Provider Date of Service: 07/16/24 Date of admission: 07/15/24 05:46 Date of discharge: 07/16/24 Primary care physician: Unknown Physician DS: Diagnosis Discharge Diagnosis (1) Angioedema: Status: Acute (2) Tachycardia: Status: Acute (3) Hypokalemia: Status: Acute (4) H/O irritable bowel syndrome: Status: Acute (5) Hx of completed stroke: Status: Acute DS: Summary Hospital Course Hospital Course: History and physical as per admitting provider. 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 Patient reports receiving the injection approximately 17:00 on Tuesday07/14/2024. Later in the evening patient noted swelling at the 3 injection sites at the top of the forehead and this then led to swelling that worsened to both eyes. Patient denies any hives, wheezing, shortness of breath, tightness in the throat or any other symptoms. Patient is able to open the right eye slightly and left eye is more swollen than the right. Patient received 125 mg of methylprednisolone in the emergency department and patient overall is feeling improved. Patient remains slightly tachycardic with a heart rate anywhere from 101-110. Patient is currently in a sinus rhythm. Vital signs are otherwise stable. Pulse ox on room air is 96%. Patient is afebrile. Patient has a mild leukocytosis and a potassium of 3.2. Patient received 20 mEq of KCl in the ED, Patient reports receiving an injection of Dysport back in March of 2024 and denies any type of reaction. Patient has never had Botox before. Patient is being admitted under observation and patient will receive 1 dose of methylprednisolone 60 mg at 15:00 and will start prednisone taper Tuesday07/16/2024. 49-year-old woman admitted for angioedema secondary to Botox injections that she received for the 1st time. She was noted to have bilateral eye edema with the left eye completely swollen shut. She had no tongue or lip swelling. She had no hypoxia. She received epinephrine in the ED and was started on systemic steroids, IV Benadryl and IV Pepcid. At this time patient's symptoms are significantly improved, she will be sent home with a prednisone taper, IV Pepcid and as needed Benadryl. She had an episode of hypokalemia that was resolved after replacement. Patient was advised not to use Botox in the future Time Attestation Discharge Coordination Time (in mins): 40 Quality: Safe Use of Opioids Does Pt have an Active Cancer Diagnosis on the Problem List?: No Quality: Stroke Does the patient have a stroke diagnosis?: No Physical Exam Vital Signs: Vital Signs: Last Vital Signs Temp 98.4 F 07/16/24 08:00 Pulse 80 07/16/24 08:00 Resp 20 07/16/24 08:00 BP 110/51 L 07/16/24 08:00 Pulse Ox 100 07/16/24 08:00 O2 Del Method Room Air 07/16/24 08:00 BMI result Body Mass Index 18.1 Appearing in no acute distress head is normocephalic atraumatic eyes pupils are PERRLA sclera is anicteric mouth throat mucous membranes are intact and moist neck is supple no lymphadenopathy, no JVD noted lung sounds are clear to auscultation heart regular rate rhythm, clear S1, S2 positive bowel sounds, abdomen is soft, nontender neuro patient is alert x3, no focal deficits DS: Data Data Completed and Pending Labs on day of discharge: Laboratory Results - last 24 hr 07/16/24 06:58 Sodium 141 Potassium 4.3 D Chloride 108 Carbon Dioxide 25 Anion Gap 12 BUN 24 H Creatinine 0.63 Estim Creat Clear Calc 79.6 Estimated GFR > 60 Random Glucose 132 H Calcium 9.3 D Discharge Plan Discharge Anticipated Discharge Date/Time: 07/16/24 09:26 Patient Disposition: Home, Self-Care Discharge Diagnosis: Angioedema Discharge Medications: New prednisone 10 mg tablet See Taper PO DIRECTED Qty: 30 0RF Taper: Prednisone 40 mg daily for 3 Days and 0 Hour 30 mg daily for 3 Days and 0 Hour 20 mg daily for 3 Days and 0 Hour 10 mg daily for 3 Days and 0 Hour Rx Instructions: see taper instructions famotidine [Pepcid] 20 mg tablet 20 mg PO DAILY Qty: 12 0RF diphenhydramine HCl [Benadryl] 25 mg capsule 25 mg PO TID PRN (Reason: allergy symptoms) Qty: 12 0RF Continued multivitamin Tablet 1 tab PO DAILY sennosides [senna] 8.6 mg Tablet 8.6 mg PO DAILY PRN (Reason: Constipation) docusate sodium [Colace] 100 mg Capsule 100 mg PO DAILY polyethylene glycol 3350 [Miralax] 17 gram/dose Powder 17 g PO DAILY PRN (Reason: Constipation) omega-3 fatty acids-fish oil 684-1,200 mg Capsule,Delayed Release(Dr/Ec) 1 cap PO DAILY Discharge Orders: Discharge Order (Routine); Ordered 07/16/24 Ordered By: Ketty Eastman Diet: Advance to usual diet Activity on Discharge: As tolerated Stand Alone Forms: Patient Portal Discharge page, Work/School Release Print Language: Romanian Care Plan Goals: Do not use Botox in the future Return to the ER for any worsening symptoms Health Concerns: Angioedema Plan of Treatment: Follow up with primary care provider as needed Take all medications as prescribed Assessment: See discharge summary
[2024-07-16 10:21] VITALS: BMI 18.1
== END 2024-07-16 11:49 | disposition home or self-care (01) ==
LOC: HO.ED 05:31 → HO.EDOVER 05:52 → HO.IMC 07:50
PROVIDERS: Physician Assistant Medical; Admitting Provider Nurse Practitioner Family; Emergency Provider Emergency Medicine; PCP Family Medicine; Visit Provider Nurse Practitioner Acute Care
DX: T78.3XXA Angioneurotic edema, initial encounter (principal); T80.89XA Other complications following infusion, transfusion and therapeutic injection, initial encounter; R22.0 Localized swelling, mass and lump, head; T48.295A Adverse effect of other drugs acting on muscles, initial encounter; Y92.9 Unspecified place or not applicable; E87.6 Hypokalemia; R00.0 Tachycardia, unspecified; Z86.73 Personal history of transient ischemic attack (TIA), and cerebral infarction without residual deficits; Z87.19 Personal history of other diseases of the digestive system
CPT/HCPCS: 36415; 80048; 80076; 85025; 96361; 96372; 96374; 96375; 96376; 99222; 99285; J0171; J1200; J1308; J2919

== ENCOUNTER → 2024-07-15 05:46 | Outpatient (BNV) | payer OTHER, SELFPAY | PROVIDERS: Admitting Provider Nurse Practitioner Family; Emergency Provider Emergency Medicine; Visit Provider Nurse Practitioner Family | DX: R00.0 Tachycardia, unspecified (principal); E87.6 Hypokalemia; T78.3XXA Angioneurotic edema, initial encounter; Z87.19 Personal history of other diseases of the digestive system; Z86.73 Personal history of transient ischemic attack (TIA), and cerebral infarction without residual deficits | CPT/HCPCS: 99221; 99499 ==

== ENCOUNTER 2024-11-24 09:43 | Outpatient (REF) | payer OTHER, SELFPAY ==
--- OUTSIDE RECORDS SUMMARY | 2024-01-26 11:55 | XMS_ITS ---
Author Organization [facility] Address [address] [place] [id number] Care Team Providers Care Abalone Diver Name Role Phone Eduarda Shrestha M.D. Primary Care Provider Un available Ayo Rajput Jr REASON FOR VISIT abd pain Encounters Encounter Location Date Provider Diagnosis [facility] [address] [place] [address] [place] [address] 01/26/2024 Ayo Rajput Jr Plan Of Treatment No Information Progress Notes * NILESH BEALDOB: [birth year] (49 yo F)Acc No.[id number]:01/26/2024 Progress Notes Patient: NILESH VAZQUEZ Provider: Nayeli Rajput MD :1975 A ge:48 Y S ex:Female Date:01/26/2024 Address:[address] [id number] Pcp:Eduarda Shrestha M.D. Subjective: * Chief Complaints: * 1 . Abd pain. * Medical History: Objective: * Vitals: Assessment: Plan: * Treatment: * * The named appointment provid er may or may not be the originator of this progress note, and it is not deemed complete until electronically signed by the appointment provider. Sign off status: Pending * Provider: Nayeli Rajput MD Date: 1 Generated for Printi ng/Faxing/eTransmitting on: 0 11/24/2024 09:45 AM EDT
--- OUTSIDE RECORDS SUMMARY | 2024-03-30 05:00 | XMS_ITS ---
Author Organization [facility] Address [address] [place] [address] Care Team Providers Care Mud Cleaner Operator Name Role Phone Eduarda Shrestha Primary Care Provider Unavail able Matias Jackie Unavailable [phone] Tyler's panel full Encounters Encounter Location Date Provider Diagnosis [address] [address] 03/30/2024 Jackie Salcedo Plan Of Treatment Next Appt Details Provider Name:Jackie Pepper Matias , 01/02/2025 08:00:00 AM, [address] [place] [address], [phone], Provider Name:Jackie Pepper Matias , 01/11/2025 08:30:00 AM, [address] [place] [address], [phone], Progress Notes * Melissa ODELL LDOB:1975 (49 yo F)Acc No.[id number]:03/30/2024 Progress Note Patient: Melissa BLAIR Provider: Blanca Salcedo DPM :1975 A ge:48 Y S ex:Female Date:03/30/2024 Address:[address] [place] [address] [id number] Pcp:Eduarda Shrestha Subjective: * Chief Complaints: * [address] Tyler's panel full. * Medical History: Objective: * Vitals: Assessment: Plan: * Treatment: * Images: * The named appointment provid er may or may not be the originator of this progress note, and it is not deemed complete until electronically signed by the appointment provider. Sign off status: Pending * Provider: Blanca Salcedo DPM Date: 0 03/30/2024 Generated for Prosper day/Deep/Terrance on: 0 11/24/2024 09:45 AM EDT
--- OUTSIDE RECORDS SUMMARY | 2024-03-30 07:00 | XMS_ITS ---
Author Organization [facility] Address [address] [place] [address] Care Team Providers Care Executive Sales Manager Name Role Phone Eduarda Shrestha Primary Care Provider Unavail able Jackie Salcedo Unavailable [phone] Mario Martínez Unavailable [phone] Encounters Encounter Location Date Provider Diagnosis [facility] [address] [place] [address] 03/30/2024 Mario Martínez Plan Of Treatment Next Appt Details Provider Name:Jackie Salcedo , 01/02/2025 08:00:00 AM, [address] [place] [address] [place], [phone], Provider Name:Jackie Salcedo , 01/11/2025 08:30:00 AM, [address] [place] [address] [place], [phone], Progress Notes * JOSE R Melissa LDOB:1975 (49 yo F)Acc No.[id number]:03/30/2024 Progress Note Patient: Melissa BLAIR Leandro Provider: Ko Martínez DPM :1975 A ge:48 Y S ex:Female Date:03/30/2024 Address:[address] [place] [address] [place] [id number] Pcp:Eduarda Shrestha Subjective: * Chief Complaints: * * Medical History: Objective: * Vitals: Assessment: Plan: * Treatment: * Images: * The named appointment provid er may or may not be the originator of this progress note, and it is not deemed complete until electronically signed by the appointment provider. Sign off status: Pending * Provider: Ko Martínez DPM Date: 0 03/30/2024 Generated for Prosper Flores/Terrance on: 0 11/24/2024 09:45 AM EDT
--- OUTSIDE RECORDS SUMMARY | 2024-11-23 07:15 | XMS_ITS ---
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 no concern Medications Medication SIG (Take, Route, Fr equency, Duration) Notes Start Date End Date Status Fish Oil Active Vitamin D3 Active Ammonium Lactate 12 % 1 application Exte rnally Twice a day Active Vital Signs Heart Rate 72 /min 11/23/2024 Blood pressure systolic 120 mm Hg 11/24/19 25 Blood pressure diastolic 68 mm Hg 025 Weight 104.6 lbs 11/23/2024 BMI 17.95 kg/m2 11/23/2024 Height 64 in 11/23/2024 Oximetry 97 % 11/23/2024 Encounters Encounter Location Date Provider Diagnosis [facility] [address] [place] [address] 11/23/2024 SINA MACKAY History of stroke Z8 6.73 ; Risk for sexually transmitted infection Z72.51 ; Dry skin L85.3 ; Underweight R63.6 ; Body mass index [BMI] 19.9 or less, adult Z68.1 and Encounter for examination of blood pressure without abnormal findings Z01.30 Assessments Encounter Date Diagnosis (ICD Code) Assessment Notes Treatment Notes Treatment Clinical Notes Section Notes 11/23/2024 History of stroke (ICD-10 - Z86.73) Melissa is a pleasant 49-year-old female present today to establish care as a new patient. #Previously seen through [facility] for primary care. Will try to transfer records. #History of stroke: Reports history of occurring at age 4. Patient fell out of bed and unable to articulate speech. Unsure regarding further information. # Dry skin: Patient reports history of dry skin worse in winter. Using ammonium lactate topical as needed. #Sexual activity: Discussed safe sex practices. Continue with annual STD testing. If symptoms develop, will consider earlier screening. #Low BMI: Wt: 104.6 lbs, BMI: 17.95 patient appears with thin stature. Patient physically active. Discussed a well-balanced diet. Will consider referral to surgical attendant. # Plan to follow-up in 4 weeks for CPE with labs. All questions answered to patients satisfaction. Patient verbalized understanding of diagnosis and treatments explained. To call sooner prior to next visit it any questions/concerns arise. Case discussed with collaborating physician Dr. Perez who reviewed the assessment and plan. Chart, medications, labs, vital signs reviewed. Dictation was accomplished with the use of [employer] voice recognition software, prone to medical misidentifications and grammatical errors. This is unintentional and the practitioner does try to identify and correct these, but some could still be present. Please do not hesitate to contact practitioner for clarification. 11/23/2024 Risk for sexually transmitted infection (ICD-10 - Z72.51) Melissa is a pleasant 49-year-old female present today to establish care as a new patient. #Previously seen through [facility] for primary care. Will try to transfer records. #History of stroke: Reports history of occurring at age 4. Patient fell out of bed and unable to articulate speech. Unsure regarding further information. # Dry skin: Patient reports history of dry skin worse in winter. Using ammonium lactate topical as needed. #Sexual activity: Discussed safe sex practices. Continue with annual STD testing. If symptoms develop, will consider earlier screening. #Low BMI: Wt: 104.6 lbs, BMI: 17.95 patient appears with thin stature. Patient physically active. Discussed a well-balanced diet. Will consider referral to surgical attendant. # Plan to follow-up in 4 weeks for CPE with labs. All questions answered to patients satisfaction. Patient verbalized understanding of diagnosis and treatments explained. To call sooner prior to next visit it any questions/concerns arise. Case discussed with collaborating physician Dr. Perez who reviewed the assessment and plan. Chart, medications, labs, vital signs reviewed. Dictation was accomplished with the use of [employer] voice recognition software, prone to medical misidentifications and grammatical errors. This is unintentional and the practitioner does try to identify and correct these, but some could still be present. Please do not hesitate to contact practitioner for clarification. 11/23/2024 Dry skin (ICD-10 - L85.3) Melissa is a pleasant 49-year-old female present today to establish care as a new patient. #Previously seen through [facility] for primary care. Will try to transfer records. #History of stroke: Reports history of occurring at age 4. Patient fell out of bed and unable to articulate speech. Unsure regarding further information. # Dry skin: Patient reports history of dry skin worse in winter. Using ammonium lactate topical as needed. #Sexual activity: Discussed safe sex practices. Continue with annual STD testing. If symptoms develop, will consider earlier screening. #Low BMI: Wt: 104.6 lbs, BMI: 17.95 patient appears with thin stature. Patient physically active. Discussed a well-balanced diet. Will consider referral to surgical attendant. # Plan to follow-up in 4 weeks for CPE with labs. All questions answered to patients satisfaction. Patient verbalized understanding of diagnosis and treatments explained. To call sooner prior to next visit it any questions/concerns arise. Case discussed with collaborating physician Dr. Perez who reviewed the assessment and plan. Chart, medications, labs, vital signs reviewed. Dictation was accomplished with the use of [employer] voice recognition software, prone to medical misidentifications and grammatical errors. This is unintentional and the practitioner does try to identify and correct these, but some could still be present. Please do not hesitate to contact practitioner for clarification. 11/23/2024 Underweight (ICD-10 - R63.6) Melissa is a pleasant 49-year-old female present today to establish care as a new patient. #Previously seen through [facility] for primary care. Will try to transfer records. #History of stroke: Reports history of occurring at age 4. Patient fell out of bed and unable to articulate speech. Unsure regarding further information. # Dry skin: Patient reports history of dry skin worse in winter. Using ammonium lactate topical as needed. #Sexual activity: Discussed safe sex practices. Continue with annual STD testing. If symptoms develop, will consider earlier screening. #Low BMI: Wt: 104.6 lbs, BMI: 17.95 patient appears with thin stature. Patient physically active. Discussed a well-balanced diet. Will consider referral to surgical attendant. # Plan to follow-up in 4 weeks for CPE with labs. All questions answered to patients satisfaction. Patient verbalized understanding of diagnosis and treatments explained. To call sooner prior to next visit it any questions/concerns arise. Case discussed with collaborating physician Dr. Perez who reviewed the assessment and plan. Chart, medications, labs, vital signs reviewed. Dictation was accomplished with the use of [employer] voice recognition software, prone to medical misidentifications and grammatical errors. This is unintentional and the practitioner does try to identify and correct these, but some could still be present. Please do not hesitate to contact practitioner for clarification. 11/23/2024 Body mass index [BMI] 19.9 or less, adult (ICD-10 - Z68.1) Melissa is a pleasant 49-year-old female present today to establish care as a new patient. #Previously seen through [facility] for primary care. Will try to transfer records. #History of stroke: Reports history of occurring at age 4. Patient fell out of bed and unable to articulate speech. Unsure regarding further information. # Dry skin: Patient reports history of dry skin worse in winter. Using ammonium lactate topical as needed. #Sexual activity: Discussed safe sex practices. Continue with annual STD testing. If symptoms develop, will consider earlier screening. #Low BMI: Wt: 104.6 lbs, BMI: 17.95 patient appears with thin stature. Patient physically active. Discussed a well-balanced diet. Will consider referral to surgical attendant. # Plan to follow-up in 4 weeks for CPE with labs. All questions answered to patients satisfaction. Patient verbalized understanding of diagnosis and treatments explained. To call sooner prior to next visit it any questions/concerns arise. Case discussed with collaborating physician Dr. Perez who reviewed the assessment and plan. Chart, medications, labs, vital signs reviewed. Dictation was accomplished with the use of [employer] voice recognition software, prone to medical misidentifications and grammatical errors. This is unintentional and the practitioner does try to identify and correct these, but some could still be present. Please do not hesitate to contact practitioner for clarification. 11/23/2024 Encounter for examination of blood pressure without abnormal findings (ICD-10 - Z01.30) Melissa is a pleasant 49-year-old female present today to establish care as a new patient. #Previously seen through [facility] for primary care. Will try to transfer records. #History of stroke: Reports history of occurring at age 4. Patient fell out of bed and unable to articulate speech. Unsure regarding further information. # Dry skin: Patient reports history of dry skin worse in winter. Using ammonium lactate topical as needed. #Sexual activity: Discussed safe sex practices. Continue with annual STD testing. If symptoms develop, will consider earlier screening. #Low BMI: Wt: 104.6 lbs, BMI: 17.95 patient appears with thin stature. Patient physically active. Discussed a well-balanced diet. Will consider referral to surgical attendant. # Plan to follow-up in 4 weeks for CPE with labs. All questions answered to patients satisfaction. Patient verbalized understanding of diagnosis and treatments explained. To call sooner prior to next visit it any questions/concerns arise. Case discussed with collaborating physician Dr. Perez who reviewed the assessment and plan. Chart, medications, labs, vital signs reviewed. Dictation was accomplished with the use of [employer] voice recognition software, prone to medical misidentifications and grammatical errors. This is unintentional and the practitioner does try to identify and correct these, but some could still be present. Please do not hesitate to contact practitioner for clarification. Plan Of Treatment Pending Test Test Name Order Date SYPHILIS TESTING 11/23/2024 LIPID PANEL, STANDARD 11/23/2024 COMPREHENSIVE METABOLIC PANEL 11/23/2024 CBC (INCLUDES DIFF/PLT) 11/23/2024 URINALYSIS, COMPLETE 11/23/2024 HEMOGLOBIN A1c 11/23/2024 TSH 11/23/2024 VITAMIN D,25-OH,TOTAL,IA 11/23/2024 CHLAMYDIA/N. GONORRHOEAE RNA, TMA, UROGE NITAL 11/23/2024 HSV 1 and 2 Ab, [id number] 11/23/2024 Next Appt Details Provider Name:SINA CODIE, 01/04/2025 11:15:00 AM, [address], [place], [address], Progress Notes * [facility], JanetDOB:1975 (49 yo F)Acc No.[id number]:11/23/2024 Progress Notes Patient: Melissa CARBAJAL Provider: Evgeny MACKAY PA-C :1975 A ge:49 Y S ex:Female Date:11/23/2024 Address:[address] [place], [place] [id number] Subjective: * Chief Complaints: * 1 . Pt is here for corporate counselor visit no concern. * HPI: C onstitutional: Melissa is a 49-year-old female present today to establish care as a new patient. New patient paperwork reviewed. Medical, surgical, social and family history reviewed. Patient was previously seen at [facility] for primary care. Last CPE was over a year ago. Patient has routine dental and ophthalmology care. Immunizations- Influenza: Up-to-date COVID: Vaccine x2 Shingles: Not up-to-date, interested in 2 dose series Tetanus: Unsure Screening- Mammogram: Scheduled next Tuesday Colonoscopy: Performed 3 years ago through [facility], recommendations to repeat in 5 years, 2026 Pap: Followed by [facility], up-to-date. Next scheduled February Reports occasional alcohol consumption. Occasional vaping and edibles. 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 She reports history of a stroke at the age of 64 years old in 1979. States as a child she had fallen out of bed and then had difficulty with speech. Unsure regarding further information. Patient today presents with , Andrew when the couple discloses they participate in sexual activity in a swinging community. Safe sex practices. Requesting annual STD testing. Sexual partners are known and also screened. * ROS: C onstitutional: Patient denies any excessive fatigue with exercise, no weight loss, no fever, no night sweats, no changes in sleep. Eyes: No eye discharge, no itching, no redness, no vision changes. Advised the significance of regular eye exams to screen for glaucoma and other eye problems. Ear nose throat: No ear pain, No sore throat, no postnasal drip, no runny nose, no sneezing, no hearing changes Cardiovascular: No chest pain, no dyspnea on exertion, no PND, no orthopnea, no irregular pulse, no palpitations, no claudication, no diaphoresis, no claudication. Respiratory: No chronic cough, no hemoptysis, no sputum, no wheezing, no SOB, no pleuritic pain. GI, No diarrhea, no constipation, no blood in the stools, no pain associated with eating, no indigestion, no difficulty swallowing, no appetite change. Genitourinary: No painful urination, no hesitancy, no blood in the urine, no incontinence, no frequency, no urgency, no abnormal discharge. Musculoskeletal: No back pain, no joint pain, no limitations to walking and running, no joint deformity, no joint stiffness, no muscle weakness Integumentary: No new skin rash. No new changes in skin moles, no pruritis, no color change. Neurological: No history of seizures, no memory loss, no language dysfunction, no inability to concentrate, no localized weakness, no sensation loss, no confusion, no dizziness, no tremor, no numbness, no tingling. Psychiatric: no anxiety, no depression, no suicidal thoughts, feels safe at home. Endocrine: No polyuria, no polyphagia, no polydipsia. No heat/cold intolerance, no excesss thirst.? Hematological: No easy bruising or bleeding, no lymph node swelling. * Medical History: Patrick marina in 1979. * Surgical History: d &c , tonsillectomy , Appendectomy . * Hospitalization/Major Diagno stic Procedure: D enies Past Hospitalization. * Family History: F ather: alive 79 yrs. M other: 76 yrs. 1 brother(s) . 1 son(s) . . family hx of diabetes and hypertension aunt: ovarian cancer. * Medications: T aking Vitamin D3 , Taking Fish Oil , Taking Ammonium Lactate 12 % Cream 1 application Externally Twice a day , Medication List reviewed and reconciled with the patient * Allergies: B actrim: rash, latex. Objective: * Vitals: H R:72/min, BP:120/68mm Hg, Wt:104.6lbs, BMI:17.95Index, Ht: 64 in, Oxygen sat %:97%. * Physical Examination: G eneral: Age appropriate female, well appearing, no acute distress, speaking in full sentences without respiratory compromise. Well groomed, well developed. Alert, Interactive. Skin: Warm, dry and intact. HEENT: Normocephalic/atraumatic. Neck/Thyroid: Supple. Full ROM. Lung: Clear to auscultation bilaterally, no wheezes, rales or rhonchi. No barrel chest. Equal chest rise and fall bilaterally. Cardiac: S1 and S2 appreciated. No murmurs/rubs or gallops. Psych: Stable mood and affect. Assessment: * Assessment: 1. H istory of stroke - Z86.73 (Primary) 2 . R isk for sexually transmitted infection - Z72.51 3 . D ry skin - L85.3 4 . U nderweight - R63.6 5 . B bia mass index [BMI] 19.9 or less, adult - Z68.1 6 . E ncounter for examination of blood pressure without abnormal findings - Z01.30 ? Melissa is a pleasant 49-year- old female present today to establish care as a new patient. #Previously seen through [facility] for primary care. Will try to transfer records. #History of stroke: Reports history of occurring at age 4. Patient fell out of bed and unable to articulate speech. Unsure regarding further information. # Dry skin: Patient reports history of dry skin worse in winter. Using ammonium lactate topical as needed. #Sexual activity: Discussed safe sex practices. Continue with annual STD testing. If symptoms develop, will consider earlier screening. #Low BMI: Wt: 104.6 lbs, BMI: 17.95 patient appears with thin stature. Patient physically active. Discussed a well-balanced diet. Will consider referral to surgical attendant. # Plan to follow-up in 4 weeks for CPE with labs. All questions answered to patients satisfaction. Patient verbalized understanding of diagnosis and treatments explained. To call sooner prior to next visit it any questions/concerns arise. Case discussed with collaborating physician Dr. Perez who reviewed the assessment and plan. Chart, medications, labs, vital signs reviewed. Dictation was accomplished with the use of [employer] voice recognition software, prone to medical misidentifications and grammatical errors. This is unintentional and the practitioner does try to identify and correct these, but some could still be present. Please do not hesitate to contact practitioner for clarification. Plan: * Treatment: * Labs: * L ab: COMPREHENSIVE METABOLIC PANEL L ab: VITAMIN D,25-OH,TOTAL,IA L ab: TSH L ab: URINALYSIS, COMPLETE L ab: LIPID PANEL, STANDARD L ab: CHLAMYDIA/N. GONORRHOEAE RNA, TMA, UROGENITAL L ab: HEMOGLOBIN A1c L ab: SYPHILIS TESTING L ab: CBC (INCLUDES DIFF/PLT) L ab: HSV 1 and 2 Ab, [id number] * Procedure Codes: 3 074F SYST BP LT 130 MM HG, 3078F DIAST BP < 80 MM HG * Images: Billing Information: * Visit Code: 89715 Office Visit, New Pt., Level 4. Modifiers: SA * Procedure Codes: 3074F SYST BP LT 130 MM HG. 3078F DIAST BP < 80 MM HG. * Sign off status: Completed true * Provider: Evgeny MACKAY PA-C Date: 0 11/23/2024 Generated for Prosper day/Deep/eTransmitting on: 0 11/24/2024 09:44 AM EDT History and Physical Notes * HPI (History of Present Illness) Category Sub-Category Detail Notes Category Not es Constitutional Melissa is a 49-year-old female present today to establish care as a new patient. New patient paperwork reviewed. Medical, surgical, social and family history reviewed. Patient was previously seen at [facility] for primary care. Last CPE was over a year ago. Patient has routine dental and ophthalmology care. Immunizations- Influenza: Up-to-date COVID: Vaccine x2 Shingles: Not up-to-date, interested in 2 dose series Tetanus: Unsure Screening- Mammogram: Scheduled next Tuesday Colonoscopy: Performed 3 years ago through [facility], recommendations to repeat in 5 years, 2026 Pap: Followed by [facility], up-to-date. Next scheduled February Reports occasional alcohol consumption. Occasional vaping and edibles. 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 She reports history of a stroke at the age of 64 years old in 1979. States as a child she had fallen out of bed and then had difficulty with speech. Unsure regarding further information. Patient today presents with , Andrew when the couple discloses they participate in sexual activity in a swinging community. Safe sex practices. Requesting annual STD testing. Sexual partners are known and also screened. Physical Examination Category Sub-Category Detail Notes Section Note s General: Age appropriate female, well appearing, no acute distress, speaking in full sentences without respiratory compromise. Well groomed, well developed. Alert, Interactive. Skin: Warm, dry and intact. HEENT: Normocephalic/atraumatic. Neck/Thyroid: Supple. Full ROM. Lung: Clear to auscultation bilaterally, no wheezes, rales or rhonchi. No barrel chest. Equal chest rise and fall bilaterally. Cardiac: S1 and S2 appreciated. No murmurs/rubs or gallops. Psych: Stable mood and affect.
--- OUTSIDE RECORDS SUMMARY | 2024-11-24 09:45 | XMS_ITS | Patient Health Record ---
Author Organization [facility] Address [address] [place] [address] Care Team Providers Care Sales Support Manager Name Role Phone SINA MACKAY Unavailable [phone] Allergies Allergen (clinical drug ingredient) Drug/Non Drug Allergy documented on EMR Reaction Allergy Type Onset Date Status Latex latex (uncoded) Unknown Allergy Acti ve sulfamethoxazole / trimethoprim Bactrim rash Drug Allergy Active Reason For Referral No Information Medications Medication SIG (Take, Route, Fr equency, Duration) Notes Start Date End Date Status Fish Oil Active Vitamin D3 Active Ammonium Lactate 12 % 1 application Exte rnally Twice a day Active Problems Problem Type SNOMED Code ICD Code Onset Dates Problem Status W/U Status Risk Notes Problem Vitamin D deficiency (E55.9) Active confirmed Vital Signs Heart Rate 72 /min 11/23/2024 Oximetry 97 % 11/23/2024 Blood pressure diastolic 68 mm Hg 11/23/2024 Height 64 in 11/23/2024 Blood pressure systolic 120 mm Hg 11/23/2024 Weight 104.6 lbs 11/23/2024 BMI 17.95 kg/m2 11/23/2024 Encounters Encounter Location Date Provider Diagnosis [facility] [address] [place] [address] 11/23/2024 SINA MACKAY History of stroke Z8 [...] as a new patient. #Previously seen through [facility] for primary care. Will try to transfer [...] a well-balanced diet. Will consider referral to development editor. # Plan to follow-up in 4 weeks for CPE with labs. All questions answered to patients satisfaction. Patient verbalized understanding of diagnosis and treatments explained. To call sooner prior to next visit it any questions/concerns arise. Case discussed with collaborating physician Dr. Perez who reviewed the assessment and plan. Chart, medications, labs, vital signs reviewed. Dictation was accomplished with the use of [employer] voice recognition software, prone to medical misidentifications [...] as a new patient. #Previously seen through [facility] for primary care. Will try to transfer [...] a well-balanced diet. Will consider referral to development editor. # Plan to follow-up in 4 weeks for CPE with labs. All questions answered to patients satisfaction. Patient verbalized understanding of diagnosis and treatments explained. To call sooner prior to next visit it any questions/concerns arise. Case discussed with collaborating physician Dr. Perez who reviewed the assessment and plan. Chart, medications, labs, vital signs reviewed. Dictation was accomplished with the use of [employer] voice recognition software, prone to medical misidentifications and grammatical errors. This is unintentional and the practitioner does try to identify and correct these, but some could still be present. Please do not hesitate to contact practitioner for clarification. 11/23/2024 Dry skin (ICD-10 - L85.3) Melissa is a pleasant 49-year-old female present today to establish care as a new patient. #Previously seen through [facility] for primary care. Will try to transfer [...] a well-balanced diet. Will consider referral to development editor. # Plan to follow-up in 4 weeks for CPE with labs. All questions answered to patients satisfaction. Patient verbalized understanding of diagnosis and treatments explained. To call sooner prior to next visit it any questions/concerns arise. Case discussed with collaborating physician Dr. Perez who reviewed the assessment and plan. Chart, medications, labs, vital signs reviewed. Dictation was accomplished with the use of [employer] voice recognition software, prone to medical misidentifications and grammatical errors. This is unintentional and the practitioner does try to identify and correct these, but some could still be present. Please do not hesitate to contact practitioner for clarification. 11/23/2024 Underweight (ICD-10 - R63.6) Melissa is a pleasant 49-year-old female present today to establish care as a new patient. #Previously seen through [facility] for primary care. Will try to transfer [...] a well-balanced diet. Will consider referral to development editor. # Plan to follow-up in 4 weeks for CPE with labs. All questions answered to patients satisfaction. Patient verbalized understanding of diagnosis and treatments explained. To call sooner prior to next visit it any questions/concerns arise. Case discussed with collaborating physician Dr. Perez who reviewed the assessment and plan. Chart, medications, labs, vital signs reviewed. Dictation was accomplished with the use of [employer] voice recognition software, prone to medical misidentifications [...] as a new patient. #Previously seen through [facility] for primary care. Will try to transfer [...] a well-balanced diet. Will consider referral to development editor. # Plan to follow-up in 4 weeks for CPE with labs. All questions answered to patients satisfaction. Patient verbalized understanding of diagnosis and treatments explained. To call sooner prior to next visit it any questions/concerns arise. Case discussed with collaborating physician Dr. Perez who reviewed the assessment and plan. Chart, medications, labs, vital signs reviewed. Dictation was accomplished with the use of [employer] voice recognition software, prone to medical misidentifications [...] as a new patient. #Previously seen through [facility] for primary care. Will try to transfer [...] a well-balanced diet. Will consider referral to development editor. # Plan to follow-up in 4 weeks for CPE with labs. All questions answered to patients satisfaction. Patient verbalized understanding of diagnosis and treatments explained. To call sooner prior to next visit it any questions/concerns arise. Case discussed with collaborating physician Dr. Perez who reviewed the assessment and plan. Chart, medications, labs, vital signs reviewed. Dictation was accomplished with the use of [employer] voice recognition software, prone to medical misidentifications [...] NITAL 11/23/2024 HSV 1 and 2 Ab, [id number] 11/23/2024 Next Appt Details Provider Name:SINA MACKAY, 01/04/2025 11:15:00 AM, [address], [place], [address], Insurance Providers Payer Name Payer Address Payer Phone Subscriber Number Group Number Insured Name Patient Relationship to Insured Coverage Start Date Coverage End Date [place] [address] [address] [place] [address] [id number] Melissa Fernandez Self - patient is the insured Medical (General) History Medical History History ICD Code stroke in 1979 Surgical History Surgery Date(Month/Year) d&c tonsillectomy Appendectomy
--- OUTSIDE RECORDS SUMMARY | 2024-11-24 09:45 | XMS_ITS | Encounter Summary ---
Author Organization [facility] Address [address] [place] [phone] Phone Care Team Providers Care Medical Insurance Coder Name Role Phone Eduarda Shrestha MD, MPH Primary Care Provid er Pcp, Unknown Primary Care Provider Unavailabl e Encounter Details Date Type Department Care Team (Late st Contact Info) Description 05/08/2021 Procedure Pass [facility] Admitting Dept Virtual Department [address] [place] [address] Social History Tobacco Use Types Packs/Day Years [...] high school, GED, job training, learning the Czech language, technical skills, or developing parenting skills)? [...] appointments or from getting medications? No 07/18/2020 Comments No Sex and Gender Information Value Date Recorded Sex Assigned at Female 04/27/2019 1:43 PM EST Legal Sex Female 3:49 PM EST Gender Identity Female 04/27/2019 1:43 PM EST Sexual Orientation Straight 04/27/2019 1: 43 PM EST documented as of this encounter Plan of Treatment Not on file documented as of this encounter Visit Diagnoses Not on filedocumented in this encounter Additional Health Concerns Infection Onset Date Last Indicated Resolved Time COVID-19 08/15/2022 08/15/2022 09/05/2022 1:21 AM EDT Assessment Noted Time PHQ-2 Depression Total Score: 0 07/19/19 1:59 PM EDT documented as of this encounter Care Teams Medical Insurance Coder Relationship Specialty Start Date End Date Eduarda Shrestha MD, MPH [address] [place] [address] [email or web address] PCP - General Family Medicine 04/20/19 10/18/24 Pcp, Unknown PCP - General 10/19/24 documented as of this encounter Additional Source Comments The information contained in this document represents components of the legal health record. It is not the complete legal health record.[facility]
--- OUTSIDE RECORDS SUMMARY | 2024-11-24 09:45 | XMS_ITS | Patient Health Record ---
Author Organization [facility] Address [address] [place] [address] Care Team Providers Care Film Composer Name Role Phone Eduarda Shrestha M.D. Primary Care Provider Un available Ayo Rajput Jr Unavailable Allergies Allergen (clinical drug ingredient) Drug/Non Drug [...] Problem Status W/U Status Risk Notes Problem [id number] Generalized abdominal pain (R10.84) Active confirmed Encounters Encounter Location Date Provider Diagnosis [facility] [address] [place] [address] 01/11/2024 Ayo Rajput Jr Plan Of Treatment Pending Test Test Name Order Date PANCREATIC ELASTASE 02/03/2023 FECAL FAT QUAL 02/03/2023 XR GI SMALL BOWEL SERIES 07/25/2023 US ABD 02/03/2023 TSH REFLEX FREE T4 07/25/2023 Insurance Providers Payer Name Payer Address Payer Phone Subscriber Number Group Number Insured Name Patient Relationship to Insured Coverage Start Date Coverage End Date [employer]EF[employer] ADMINISTRATORS OF [place] [address] [address] [place] [address] [id number] [facility] NILESH Self - patient is the insured Medical (General) History Medical History History ICD Code CVA, 1980 Surgical History Surgery Date(Month/Year) tonsillectomy and adenoidectomy appendectomy dilatation and curettage
--- OUTSIDE RECORDS SUMMARY | 2024-11-24 09:46 | XMS_ITS | Clinical Summary ---
Author Organization [facility] Address [address] [place] [address] Phone Care Team Providers Care Electronics Processor Name Role Phone Pcp, Unknown Primary Care Provider Unavailabl e Allergies Active Allergy Reactions Criticality Noted Date Comments Sulfamethoxazole-Trimethoprim Rash Medium 2019 Latex Rash Low 04/27/2019 Medications loratadine (CLARITIN) 10 mg tablet Take 10 mg by mouth daily. Active fluticasone propionate (FLONASE) 50 mcg/actuation nasal spray 1 spray by Nasal route daily. Active b complex vitamins capsule Take 1 capsule by mouth daily. Active omega 9-hts-vkg-fish oil 1,000 mg (120 mg-180 mg) Cap Take 1 capsule by mouth daily. Active polyethylene glycol (MIRALAX) 17 gram/dose powder Take 17 g by mouth daily. Active selenium sulfide 2.25 % ShamIndications :Tinea versicolor APPLY TOPICALLY TWICE A WEEK 180 mL 1 12/09/19 22 Active Additional Information Patient not taking.Reported on 12/21/2023 oyzbtssz-izp-ej rrous gluconate (CENTRUM WITH IRON) 9 mg iron/15 mL Liqd Take 15 mL by mouth daily. Active coenzyme Q10 100 mg capsule Take 100 mg by mouth daily. Active Bacillus coagulans-inuli n 1 billion-250 cell-mg Cap Take 250 mg by mouth daily. Active cranberry fruit concentrate 250 mg Chew Take by mouth. Activ e docusate sodium (COLACE) 50 MG capsule Take [...] Active ammonium lactate (AMLACTIN) 12 % cream APPLY TO AFFECTED AREA TOPICALLY NEEDED. UP TO 8 TIMES A DAY 385 g 2 11/22/19 Active ammonium lactate (AMLACTIN) 12 % cream Apply topically as needed. Up to 8 times a day 385 g 2 12/21/19 24 2024 Discontinued Active Problems Problem Noted Date Diagnosed Date Anogenital warts 07/22/2020 Assessment & Plan (07/22/2020 10:39 AM EDT): Cont treatment with Sql Database Programmer. Reviewed benign nature in terms of health although they are very emotionally distressing to Melissa. 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 Assessment & Plan (04/30/2019 10:21 AM EST): Continue amitryptiline. Dose confirmed with pharmacy. Bunion of great toe of right foot 04/27/2019 Assessment & Plan (04/27/2019 3:01 PM EST): Not currently botthering her, will let me know if she would like to see rn patient services in the future. Dystrophic nail 04/27/2019 Overview [...] O-pad Hammer toe of right foot 04/27/2019 Encounters Date Type Department Care Team Description 11/21/2024 Refill [facility] [address] [place] [address] Eduarda Shrestha MD, MPH Medication Refill 10/16/2024 Telephone [facility] [address] [place] [address] Eduarda Shrestha MD, MPH from Last 3 Months Immunizations Immunization Administration Dates Next Due COVID-19 (Pre-01/17) Moderna [...] high school, GED, job training, learning the Icelandic language, technical skills, or developing parenting skills)? [...] your housing situation today? I have morris gordon 12/18/2023 How many times have you move [...] or tries to control you? No 12/18/2023 Comments No Sex and Gender Information Value Date Recorded Sex Assigned at Female 04/27/2019 1:43 PM EST Legal Sex Female 3:49 PM EST Gender Identity Female 04/27/2019 1:43 PM EST Sexual Orientation Straight 04/27/2019 1: 43 PM EST Last Filed Vital Signs Vital Sign Reading Time Taken Comments Blood Pressure 126/80 12/21/2023 2:25 PM EDT Pulse 67 12/21/2023 2:25 PM EDT Temperature 38.6 C (101.4 F) 08/17/2022 1:30 PM EDT Respiratory Rate 15 05/08/2021 9:47 AM EST Oxygen Saturation 98% 12/21/2023 2:25 PM EDT Inhaled Oxygen Concentration 5% 05/08/2021 9 :13 AM EST Weight 58 kg (127 lb 12.8 oz) 12/21/2023 2:25 PM EDT Height 164 cm (5' 4.57 ) 12/21/2023 2:25 PM EDT w/ shoes Body Mass Index 21.55 12/21/2023 2:25 PM EDT Plan of Treatment Health Maintenance Due Date Last Done Comments LIPID PANEL 1973 PAP SMEAR 1994 COLOGUARD 2018 FIT TEST 2018 FOBT 2018 SIGMOIDOSCOPY 2018 VIRTUAL COLONOSCOPY 2018 PNEUMOCOCCAL VACCINES (50+ years) (1 of 1 - PCV) 05/31/2023 ZOSTER VACCINES (1 of 2) 05/31/2023 COVID-19 VACCINE (4 - season) 2023 03/13/2021, 05/15/2020, 04/12/2020 INFLUENZA VACCINE (#1) 2024 , 01/13/2022, 01/08/2021, Additional history exists DEPRESSION SCREENING 12/17/2024 12/18/2023 MAMMOGRAM 10/27/2025 10/28/2023, 03/29, 09/03/2022, Additional history exists COLONOSCOPY 05/08/2031 05/08/2021 COLORECTAL CANCER SCREENING 05/08/2031 Adult Td,Tdap Booster 03/12/2032 03/12/2022 HIV ONE-TIME SCREENING (18-65 YEARS) Completed 05/11/2019 SMOKING STATUS SCREENING (Once After 26 Yrs) Completed 12/21/2023 HEPATITIS C SCREENING Completed 02/15/2024 , 07/23/2022, 05/11/2019, Additional history exists HEPATITIS A VACCINES Aged Out No long er eligible based on patient's age to complete this topic HIB VACCINES Aged Out No longer eligi ble based on patient's age to complete this topic MENINGOCOCCAL VACCINES (ACWY) Aged Out No longer eligible based on patient's age to complete this topic MENINGOCOCCAL VACCINES (B) Aged Out N o longer eligible based on patient's age to complete this topic Medical Devices Implanted Type Area Beater Worker Helper Device Identifier Shelf Expiration Date Model / Serial / Lot Mirena Procedures Procedure Name Priority Date/Time Associated Diagnosis Comments HEPATITIS C ANTIBODY, QUALITATIVE Routine 02/15/2024 10:32 AM EST Annual physical exam HM MAMMOGRAPHY Routine 10/28/2023 9:53 AM EDT ENDOSCOPY, COLON 05/08/2021 9:07 AM EST OUTSIDE HIV Routine 05/11/2019 from Last 3 Months or Most Recently Relevant to Health Maintenance Results * Hepatitis C antibody, qualitative (02/15/2024 10:32 AM EST) Blood Eduarda Shrestha MD, MPH LAB BLOOD ORDERABLES Final Result [address] [address] * MAMMOGRAPHY FOR RESULT ENTRY ONLY (10/28/2023 9:53 AM EDT) us Historical Provider HEALTH MAINTENANCE Edited Result - Final * ENDOSCOPY, COLON (05/08/2021 9:07 AM EST) Narrative Transcriptions Tucker Mast MD - 05/08/2021 9:07 AM EST Patient Name: Melissa [facility] Attending MD:: TUCKER MAST MD Procedure Date: 05/08/2021 9:07 AM Date of : 1975 Age: 45 Admit Type: Outpatient Gender: Female Room: [facility] 04 Referring MD: Eduarda Shrestha Exam Type: [...] monitored continuously. The Olympus adult variable colonoscope [id number] #3 was introduced through the anus and [...] with cross sectional imaging inthe RLQ Tucker Mast TUCKER MAST MD 05/08/2021 9:49:42 AM This report has been signed electronically. Number of Addenda: 0 Note Initiated On: 05/08/2021 9:07 AM Procedure Code(s): --- Professional --- 05734, Colonoscopy, flexible; with biopsy, single or multiple --- Technical --- 07518, Colonoscopy, flexible; with biopsy, single or multiple CPT copyright 2020 [employer]. All rights reserved. The codes documented in this report are preliminary and upon it applications analyst reviewmay be revised to meet current compliance requirements. Procedure Date: 05/08/2021 9:07:[address] [place] [address] [id number] Eduarda Shrestha MD, MPH GI PROCEDURE ORDERAB LES Final Result * OUTSIDE HIV TEST (05/11/2019) HIV - External Neg Historical Provider LAB BLOOD ORDERABLES Ani l Result from Last 3 Months or Most Recently Relevant to Health Maintenance Insurance [employer] BENEFITS ADMINISTRATORS [employer] BENEFITS ADMINISTRATORS [employer] BENEFITS ADMINISTRATORS [employer] BENEFITS ADMINISTRATORS [employer] BENEFITS ADMINISTRATORS [employer] BENEFITS ADMINISTRATORS [employer] BENEFITS ADMINISTRATORS [employer] BENEFITS ADMINISTRATORS [employer] ADMINISTRATORS Care Teams Electronics Processor Relationship Specialty Start Date End Date Pcp, Unknown PCP - General 10/19/24 Additional Source Comments The information contained in this document represents components of the legal health record. It is not the complete legal health record.[facility]
--- OUTSIDE RECORDS SUMMARY | 2024-11-24 09:46 | XMS_ITS | Encounter Summary ---
Author Organization [facility] Address [address] [place] [address] Phone Care Team Providers Care Certified Midwife Name Role Phone Pcp, Unknown Primary Care Provider Unavailabl e Reason for Visit * Reason Comments Medication Refill Encounter Details Date Type Department Care Team (Late st Contact Info) Description 11/21/2024 Refill [facility] [address] [place] [address] Eduarda Shrestha MD, MPH [address] [place] [address] [email or web address] Medication Refill Social History Tobacco Use Types Packs/Day Years Used Date Smoking Tobacco: Never Passive Smoke Exposure: Never Smokeless Tobacco: Never Alcohol Use Standard [...] high school, GED, job training, learning the Wolof language, technical skills, or developing parenting skills)? [...] PM EST documented as of this encounter Progress Notes * Malathi Navarro MA - 11/21/2024 3:32 PM EDT FD - pt needs physical scheduled please. * Malathi Navarro MA - 11/21/2024 3:32 PM EDT Rx Care Gap Status - Instructions for Clinical Staff (prescriber discretion applies): > Mismatch review guide > No future appt: Please schedule if appropriate. Visit Info Last visit: 12/21/2023 Eduarda Shrestha MD, MPH - Primary Care [facility] PRIMARY OXBOW > Requested f/u: Return in about 1 year (around 12/20/2024) for Annual physical. Upcoming visit: None ACTIONS TAKEN BY Malathi Navarro MA - Visit needed - Scheduled; sent msg to FD; and/or reminded pt. Topical / Dermatology Rx Protocol - ammonium lactate Criteria met; renew for up to 12 months. Visit in the past 14 months: Yes documented in this encounter Plan of Treatment Not on file documented as of this encounter Visit Diagnoses Not on filedocumented in this encounter Additional Health Concerns Assessment Noted Time PHQ-2 Depression Total Score: 0 12/18/19 24 7:17 PM EDT documented as of this encounter Care Teams Certified Midwife Relationship Specialty Start Date End Date Pcp, Unknown PCP - General 10/19/24 documented as of this encounter Additional Source Comments The information contained in this document represents components of the legal health record. It is not the complete legal health record.[facility]
--- OUTSIDE RECORDS SUMMARY | 2024-11-24 09:46 | XMS_ITS | Patient Health Record ---
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 Name Role Phone Eduarda Shrestha Primary Care Provider Unavail able Jackie Salcedo Unavailable [phone] GriffithsCornel Unavailable [phone] Mario Martínez Unavailable [phone] Corine Mosqueda Unavailable [phone] Allergies Allergen (clinical drug ingredient) Drug/Non Drug Allergy documented on EMR Reaction Allergy Type Onset Date Status Latex Latex rash Allergy Active Substance with sulfonamide structure and antibacterial mechanism of action (substance) Sulfa Antibiotics rash Drug Allergy Active Reason For Referral No Information Medications Medication SIG (Take, Route, Frequency, Duration) Notes Start Date End Date Status AFO-fixed . 1 . Wear daily; Duration: . 11/02/2024 Active Multivitamin - 1 tablet Orally Once a day; Duration: 30 day(s) Active Calcium 1 tab Oral; Duration : 14 days Active Amitriptyline HCl 10 MG 1 tablet at bedt alia Orally Once a day; Duration: 30 day(s) Not-Taking [place] 3 Active Immunizations Vaccine Route Administration Date Status Comme nts Influenza Unknown 11/28/2023 Administered Social History Tobacco Use: Social History Observation Description Date Details (start date - stop date) Never Smoker NA - NA Tobacco use other than smoking: Question Answer Notes Are you an other tobacco user? No Tobacco Control (Standard) Question Answer Notes Tobacco use: Nonsmoker Additional Findings: Tobacco non-user Current no nsmoker AUDIT-C (Standard) Question Answer Notes Did you have a [...] (0 point) How often did you have six o r more drinks on one occasion in the past year? Never (0 point) Points 1 Interpretation Negative Problems Problem Type SNOMED Code ICD Code Onset Dates Problem Status W/U Status Risk Notes Problem Acquired hallux valgus (23942330) Hallux valgus (acquired), left foot (M20.12) Active confirmed Problem Pain in right foot (8051657525022 07) Pain in right foot (M79.671) Active confirmed Problem Acquired hallux valgus (68190065) Hallux valgus (acquired), right foot (M20.11) Active confirmed Problem Other hammer toe(s) (acquired), right foot (M20.41) Active confirmed Problem Acquired hammer toe of left foot (3508109213842 103) Other hammer toe(s) (acquired), left foot (M20.42) Active confirmed Vital Signs Heart Rate 82 /min 06/01/2024 Blood pressure diastolic 87 mm Hg 11/02/2024 Height 5ft 4in in 11/02/2024 Blood pressure systolic 138 mm Hg 11/02/2024 Weight 105 lbs 11/02/2024 BMI 18.02 kg/m2 11/02/2024 Encounters Encounter Location Date Provider [facility] [address] [place] [address] 01/06/2024 Corenl Griffiths Other hammer toe(s) (acquired), right foot M20.41 ; Hallux valgus (acquired), right foot M20.11 ; Hallux valgus (acquired), left foot M20.12 ; Pain in right foot M79.671 ; Other hammer toe(s) (acquired), left foot M20.42 and Ingrowing nail L60.0 [facility] [address] [address] 06/01/2024 Jackie Salcedo Other hammer toe(s) (acquired), right foot M20.41 ; Hallux valgus (acquired), right foot M20.11 ; Hallux valgus (acquired), left foot M20.12 ; Pain in right foot M79.671 and Other hammer toe(s) (acquired), left foot M20.42 [facility] [address] 08/03/2024 Jackie Salcedo Other hammer toe(s) (acquired), right foot M20.41 ; Hallux valgus (acquired), right foot M20.11 ; Hallux valgus (acquired), left foot M20.12 ; Pain in right foot M79.671 and Other hammer toe(s) (acquired), left foot M20.[address] [address] 11/02/2024 Jackiedarlene Salcedo Other hammer toe(s) (acquired), right foot M20.41 ; Right foot drop M21.371 ; Hallux valgus (acquired), right foot M20.11 ; Hallux valgus (acquired), left foot M20.12 ; Pain in right foot M79.671 ; Other hammer toe(s) (acquired), left foot M20.42 and Right-sided muscle weakness M62.[address] [facility] [address] [facility]/2023 [facility] [address] [place] [address] 01/06/[address] [address] 05/04/2024 Jackie Salcedo [address] [address] 08/17/2024 Jackie Salcedo Assessments Encounter Date Diagnosis (ICD Code) Assessment Notes Treatment Notes Treatment Clinical Notes Section Notes 01/06/2024 Other hammer toe(s) (acquired), right foot (ICD-10 - M20.41) 06/01/2024 Hallux valgus (acquired), right foot (ICD-10 - M20.11) 06/01/2024 Other hammer toe(s) (acquired), right foot (ICD-10 - M20.41) 08/03/2024 Hallux valgus (acquired), right foot (ICD-10 - M20.11) 08/03/2024 Other hammer toe(s) (acquired), right foot (ICD-10 - M20.41) 11/02/2024 Other hammer toe(s) (acquired), right foot (ICD-10 - M20.41) 11/02/2024 Right foot drop (ICD-10 - M21.371) 01/06/2024 Hallux valgus (acquired), right foot (ICD-10 - M20.11) 11/02/2024 Hallux valgus (acquired), right foot (ICD-10 - M20.11) 08/03/2024 Hallux valgus (acquired), left foot (ICD-10 - M20.12) 06/01/2024 Hallux valgus (acquired), left foot (ICD-10 - M20.12) 01/06/2024 Hallux valgus (acquired), left foot (ICD-10 - M20.12) 06/01/2024 Pain in right foot (ICD-10 - M79.671) 08/03/2024 Pain in right foot (ICD-10 - M79.671) 11/02/2024 Hallux valgus (acquired), left foot (ICD-10 - M20.12) 11/02/2024 Pain in right foot (ICD-10 - M79.671) 08/03/2024 Other hammer toe(s) (acquired), left foot (ICD-10 - M20.42) 06/01/2024 Other hammer toe(s) (acquired), left foot (ICD-10 - M20.42) 01/06/2024 Pain in right foot (ICD-10 - M79.671) 01/06/2024 Other hammer toe(s) (acquired), left foot (ICD-10 - M20.42) 11/02/2024 Other hammer toe(s) (acquired), left foot (ICD-10 - M20.42) 11/02/2024 Right-sided muscle weakness (ICD-10 - M62.81) 01/06/2024 Ingrowing nail (ICD-10 - L60.0) Plan Of Treatment Pending Test Test Name Order Date X ray : Foot, right 3V 04/04/2020 Next Appt Details Provider Name:Jackie Salcedo , 01/02/2025 08:00:00 AM, [address], [place], [address], Provider Name:Jackie Salcedo , 01/11/2025 08:30:00 AM, [address], [place], [address], Insurance Providers Payer Name Payer Address Payer Phone Subscriber Number Group Number Insured Name Patient Relationship to Insured Coverage Start Date Coverage End Date [employer] [address] [address] [place] [address] [id number] Melissa Middleton Self - patient is the insured Medical (General) History Medical History History ICD Code Stroke covid-19 balance trouble Surgical History Surgery Date(Month/Year) tonsillectomy 1983 D&C 2007
[2024-11-24 10:02] LABS: MANUAL DIFF FLAG NO
[2024-11-24 11:01] LABS: Hematocrit 40.5 % (37.0-47.0); Hemoglobin 13.9 g/dl (12.0-16.0); Imm Gran Abs Auto 0.00 X10*3/uL (0.00-0.03); Imm Gran Pct Auto 0.0 % (0.0-0.4); Lymphocytes Absolute Auto 1.8 X10*3/uL (1.2-4.9); Mean Corpuscular HGB Conc 34.3 g/dl (31.0-35.0); Mean Corpuscular Hemoglobin 32.3 pg (27.0-33.0); Mean Corpuscular Volume 94.2 fL (80.0-98.0); NRBC Abs Auto 0.000 X10*3/uL (0.0-0.012); NRBC Pct Auto 0.0 /100WBC (0.0-0.2); Platelet Count 300 X10*3/uL (160-400); Red Blood Count 4.30 X10*6/uL (4.20-5.50); White Blood Count 4.7 X10*3/uL (4.8-10.8)
[2024-11-24 11:16] LABS: Hemoglobin A1C 118.3707 umol/L; Total Hemoglobin (HGBA1C) 3568.2619 umol/L
[2024-11-24 11:32] LABS: Appearance Urine Cloudy; Glucose Urine UA Negative (Negative); PH 7.0 (5.0-9.0); Specific Gravity - Urine 1.015 (1.005-1.025)
[2024-11-24 11:45] LABS: Alanine Aminotransferase 31 U/L (0-31); Albumin Level 4.3 g/dL (3.5-5.0); Alkaline Phosphatase 62 U/L (39-117); Anion Gap 11 (12-20); Aspartate Amino Transferase 26 U/L (5-31); Blood Urea Nitrogen 20 mg/dL (9-16); Calcium 8.9 mg/dL (8.4-10.2); Carbon Dioxide 33 mmol/L (22-29); Chloride 106 mmol/L (96-108); Cholesterol 154 mg/dL (<200); Estimated Glomerular Filt Rate > 60; HDL Cholesterol 54 mg/dL (>40); Potassium 3.5 mmol/L (3.3-5.1); Sodium 146 mmol/L (135-145); Total Protein 6.8 g/dL (6.5-8.0); Triglycerides 50 mg/dL (<150)
[2024-11-24 11:54] LABS: Syphilis Screen Nonreactive (Nonreactive)
[2024-11-24 12:02] LABS: Thyroid Stimulating Hormone 1.12 uIU/mL (0.32-4.0)
[2024-11-24 15:11] LABS: CT PCR Urine NOT DETECTED (Not Detect.); NG PCR Urine NOT DETECTED (Not Detect.)
== END 2024-11-24 09:44 | disposition home or self-care (01) ==
LOC: HO.LAB 09:43
DX: Z00.00 Encounter for general adult medical examination without abnormal findings (principal); Z13.29 Encounter for screening for other suspected endocrine disorder; Z13.220 Encounter for screening for lipoid disorders; Z13.1 Encounter for screening for diabetes mellitus; Z20.2 Contact with and (suspected) exposure to infections with a predominantly sexual mode of transmission; Z13.6 Encounter for screening for cardiovascular disorders; Z11.4 Encounter for screening for human immunodeficiency virus [HIV]; Z11.3 Encounter for screening for infections with a predominantly sexual mode of transmission; E55.9 Vitamin D deficiency, unspecified
CPT/HCPCS: 36415; 80053; 80061; 81001; 82306; 83036; 84443; 85025; 86695; 86696; 86780; 87491; 87591

== ENCOUNTER → 2024-12-01 08:00 | Outpatient (BNV) | payer OTHER, SELFPAY | PROVIDERS: Visit Provider Internal Medicine | DX: Z12.31 Encounter for screening mammogram for malignant neoplasm of breast (principal) | CPT/HCPCS: 77063; 77067 ==

== ENCOUNTER 2024-12-01 08:02 | Outpatient (REF) | payer OTHER, SELFPAY | END 2024-12-01 08:03 | disposition home or self-care (01) | LOC: HO.MAMMO 08:02 | DX: Z12.31 Encounter for screening mammogram for malignant neoplasm of breast (principal) | CPT/HCPCS: 77063; 77067 ==